=== PATIENT | male | born 1950 | race Caucasian/White ===

== ENCOUNTER 2018-03-25 10:56 | Emergency (ER) | payer MEDICARE ==
[~2018-03-25 10:56] MED LIST changes: -OXYC-865 PO
[2018-03-25 11:00] VITALS: BP 140/89
--- NOTE | 2018-03-25 11:12 | ER Report ---
History and Physical Time Seen By MD: 11:07 Hx. of Stated Complaint: patient was walking up some stairs and tripped. he landed on his right elbow and is reporting right upper arm/shoulder pain HPI/ROS CHIEF COMPLAINT: Fall with right arm pain HISTORY OF PRESENT ILLNESS: 67-year-old male patient presents to emergency room with complaint of fall with right arm pain. [place] stairs when he tripped on the last step. Patient states he fell forward and landed on his right elbow. Patient states he is not having any pain in the elbow at this time but has have pain in the upper arm. He denies any numbness tingling, is able to move his fingers without any difficulties. He states he is not taking any medication for this. EMS was contacted they did bring him up to emergency room, he is placed in a sling at that time. Patient rates his pain currently at a one out of 10. Patient denies any neck pain, head injury, dizziness, nausea, vomiting or diarrhea. REVIEW OF SYSTEMS: Respiratory: No cough, no dyspnea. Cardiovascular: No chest pain, no palpitations. Gastrointestinal: No vomiting, no abdominal pain. Musculoskeletal: As noted above Allergies: Coded Allergies: clindamycin (Verified Adverse Reaction, Unknown, 09/16/11) AVOIDS, NEVER HAD CLINDAMYCIN Uncoded Allergies: JANI HIPS (Allergy, Intermediate, LIP SWELLING, 03/01/12) Home Meds Active Scripts Oxycodone Hcl/Acetaminophen (PERCOCET 5-325 MG TABLET) 1 Each Tablet, 1 EACH PO Q4-6H Y for PAIN, #20 TAB Prov:NAZARIO PURVIS FLUE LINING DIPPER 03/25/18 Reported Medications Levothyroxine Sodium (Levothyroxine Sodium) 50 Mcg Tablet, 75 MCG PO DAILY, 0 Refills 09/16/11 Clonazepam (Klonopin) 1 Mg Tab, 0.5 MG PO BID, 0 Refills 09/16/11 Discontinued Reported Medications Cephalexin Monohydrate (Keflex) 500 Mg Cap, 500 MG PO TID, #15 0 Refills 09/16/11 Past Medical/Surgical History Patient has a past medical history of reflux, hypothyroidism, anxiety. Patient has surgical history of cholecystectomy. Patient has a family medical history of cancer, stroke, diabetes, psychiatric problems. Reviewed Nurses Notes: Yes Hx Smoking: No Hx Substance Use Disorder: No Hx Alcohol Use: No Constitutional Vital Sign - Last 24 Hours 03/25/18 11:00 Temp 98.2 Pulse 76 Resp 20 B/P (MAP) 140/89 Pulse Ox 95 O2 Delivery Room Air Physical Exam General Appearance: The patient is alert, has no immediate need for airway protection and no current signs of toxicity. Respiratory: Chest is non tender, lungs are clear to auscultation. Cardiac: regular rate and rhythm Gastrointestinal: Abdomen is soft and non tender, no masses, bowel sounds normal. Musculoskeletal: Neck: Neck is supple and non tender. Extremities have full range of motion and are non tender. Patient does have tenderness in the upper arm, no tenderness to palpation to the elbow. Patient has good sensation in the hand, good movement. Skin: No rashes or lesions. DIFFERENTIAL DIAGNOSIS: After history and physical exam differential diagnosis was considered for contusion, strain, fracture, dislocation. Medical Decision Making EKG/Imaging Imaging Exam type: SHOULDER MIN 2 VIEWS RIGHT History: fall with pain Comparison: None. Findings: Two views the right shoulder demonstrate an oblique fracture through the mid to proximal diaphysis of the right humerus with 2.7 cm posterior lateral displacement of distal fragment. There is also comminuted fracture through the right humeral head extending through the greater tuberosity. IMPRESSION: 1. Oblique fracture through the mid to proximal diaphysis the right humerus with 2.7 cm posterior lateral displacement of distal fragment Comminuted fracture through the right humeral head extending through the greater tuberosity. Report Dictated By: Nena Lynn MD at 03/25/2018 11:33 AM Report E-Signed By: eNna Lynn MD at 03/25/2018 11:35 AM ED Course/Re-evaluation ED Course Patient was admitted to an exam room, history and physical were obtained. Differential diagnoses were considered. On examination patient does have tenderness in the right upper arm, he is concerned sensation and good movement with his right hand. X-rays performed of the right shoulder, does show a displaced fracture of the proximal humerus. I discussed the case with Dr. Taylor, orthopedist, he recommended placing patient in a sling having follow- up in the clinic. I discussed this with patient. We were able to get him in a sling, he was able tolerate that well. Patient will be discharged home. He does have information to contact [facility], he is to return to emergency room with any numbness or tingling in the hand, or pain that is uncontrolled by his pain medication. Patient verbalized understanding and agreement. I did encourage him to call this afternoon to make an appointment. Patient verbalized understanding and agreement with plan. Decision to Disposition Date: Mar 25, 2018 Decision to Disposition Time: 11:49 Depart Departure Latest Vital Signs Vital Signs Date Time Temp Pulse Resp B/P (MAP) Pulse Ox O2 Delivery O2 Flow Rate FiO2 03/25/18 11:00 98.2 76 20 140/89 95 Room Air Impression: Primary Impression: Humeral fracture Additional Impression: Humeral head fracture Condition: Improved Disposition: HOME OR SELF-CARE Referrals: AKSHAT SCOTT (PCP) DUNG TAYLOR MD New Scripts Oxycodone Hcl/Acetaminophen (PERCOCET 5-325 MG TABLET) 1 Each Tablet 1 EACH PO Q4-6H Y for PAIN, #20 TAB Prov: NAZARIO PURVIS 03/25/18 Patient Instructions: Proximal Humerus Fracture (ED) Additional Instructions: Limit activity by pain. Ice the upper arm; 2-3 times a day for 20-30 minutes. Follow up with [facility], call this afternoon to make an appointment. With a sling 23 out of 24 hours a day, he may take it off to shower. Return to the ER with uncontrollable pain or numbness to the hand. You may take Ibuprofen as needed for pain in addition to the pain medication. Don't take any additional Tylenol while on the pain medication. Problem Qualifiers Primary Impression: Humeral fracture Encounter type: initial encounter Humerus Location: proximal Fracture type : closed Fracture morphology: other fracture Fracture alignment: displaced Laterality: right Qualified Codes: S42.291A - Other displaced fracture of upper end of right humerus, initial encounter for closed fracture Additional Impression: Humeral head fracture Encounter type: initial encounter Fracture type: closed Laterality: right Qualified Codes: S42.291A - Other displaced fracture of upper end of right humerus, initial encounter for closed fracture NAZARIO PURVIS Mar 25, 2018 11:12
--- NOTE | 2018-03-25 11:40 | RADIOLOGY IMAGING REPORT ---
FACILITY: [facility] PATIENT NAME: Herrera Bowles : 1950 MR: [id number] V: [id number] EXAM DATE: ORDERING PHYSICIAN: NAZARIO PURVIS TECHNOLOGIST: Location: [facility] Patient: Herrera Bowles : 1950 Visit/Account:[id number] Date of Sevice: 03/25/2018 Exam type: SHOULDER MIN 2 VIEWS RIGHT History: fall with pain Comparison: None. Findings: Two views the right shoulder demonstrate an oblique fracture through the mid to proximal diaphysis of the right humerus with 2.7 cm posterior lateral displacement of distal fragment. There is also comm inuted fracture through the right humeral head extending through the greater tuberosity. IMPRESSION: 1. Oblique fracture through the mid to proximal diaphysis the right humerus with 2.7 cm posterior la teral displacement of distal fragment Comminuted fracture through the right humeral head extending through the greater tuberosity. Report Dictated By: Nena Lynn MD at 03/25/2018 11:33 AM Report E-Signed By: Nena Lynn MD at 03/25/2018 11:35 AM WSN:[email or web address]
[2018-03-25] MEDS ORDERED: OXYC-865 PO (11:48)
== END 2018-03-25 13:08 | disposition home or self-care (01) ==
LOC: ER 11:09
DX: S42.291A Other displaced fracture of upper end of right humerus, initial encounter for closed fracture (principal)
CPT/HCPCS: 73030; 99283; A9270

== ENCOUNTER → 2018-03-25 | Outpatient (CLI) | payer MEDICARE ==
[~2018-03-25] MED LIST: CEP500 PO; CLO1 PO; DIP25 PO; DOC100 PO; DOCU50CA7 PO; FAMO-129 PO; LEVO50TA80 PO; LOR5 PO; OXYC-865 PO; PAN40 PO; PER PO; [UNRECOGNIZED DRUG - CODE] IM; [UNRECOGNIZED DRUG - CODE] PO
== END ==
LOC: AMB 10:36
PROVIDERS: ATTEND Nurse Practitioner
DX: M25.511 Pain in right shoulder (principal); M25.521 Pain in right elbow; W10.8XXA Fall (on) (from) other stairs and steps, initial encounter; Y92.89 Other specified places as the place of occurrence of the external cause
CPT/HCPCS: A0425; A0429

== ENCOUNTER 2018-04-12 00:18 | Observation (INO) | payer MEDICARE ==
[2018-04-12] VITALS (16 sets, daily range): BP systolic 108–154; BP diastolic 69–103
[~2018-04-12] VITALS: Ht 177.8 cm; Wt 79.3 kg
[~2018-04-12 00:18] MED LIST changes: +OXYC-823 PO; +OXYC-865 PO
[2018-04-12] MEDS ORDERED: NORMOSOL R SOLN(*) 1000 ML BAG 1,000 ML IV PRN (08:00)
[2018-04-12] MEDS ORDERED: ceFAZolin(*) 2GM/D5W 50ML 50 ML IVPB ONE (08:00)
[2018-04-12] MEDS ORDERED: LIDOCAINE/SOD BICARB 8.4% SYR ID ONE (08:00)
[2018-04-12] MEDS ORDERED: CELECOXIB 200 MG CAP PO ONE (08:00)
[2018-04-12] MEDS ORDERED: FAMOTIDINE 20 MG TAB PO ONE (08:00)
[2018-04-12] MEDS ORDERED: MIDAZOLAM 2 MG/2 ML VIAL IVP PRN (08:00)
[2018-04-12] MEDS ORDERED: ROPIVACAINE 0.2% 20 ML VIAL ONE (09:26)
[2018-04-12] MEDS ORDERED: PROPOFOL EMUL(*) 10MG/ML 20 ML 20 ML ONE (10:14)
[2018-04-12] MEDS ORDERED: ROCURONIUM BROM 10 MG/ML 10 ML ONE (10:14)
[2018-04-12] MEDS ORDERED: SUCCINYLCHOL CHL 200MG/10ML VL ONE (10:14)
[2018-04-12] MEDS ORDERED: KETAMINE HCL 500 MG/10 ML VIAL ONE (10:16)
[2018-04-12] MEDS ORDERED: MIDAZOLAM 2 MG/2 ML VIAL ONE (10:17)
[2018-04-12] MEDS ORDERED: DEXAMETHASONE SOD PHOS 10MG/ML ONE (10:30)
[2018-04-12] MEDS ORDERED: GLYCOPYRROLATE 0.2MG/ML 1 ML INJ ONE (10:30)
[2018-04-12] MEDS ORDERED: ONDANSETRON 4 MG/2 ML VIAL ONE (10:30)
[2018-04-12] MEDS ORDERED: fentaNYL CITR 100 MCG/2 ML AMP ONE ×3 (11:13→13:19)
[2018-04-12] MEDS ORDERED: LABETALOL HCL 100 MG/20ML VIAL ONE (11:41)
[2018-04-12] MEDS ORDERED: SUGAMMADEX SOD 200 MG/2 ML SDV ONE (12:41)
--- NOTE | 2018-04-12 12:58 | RADIOLOGY IMAGING REPORT ---
FACILITY: [facility] PATIENT NAME: Herrera Bowles : 1950 MR: [id number] V: [id number] EXAM DATE: ORDERING PHYSICIAN: MELISSA DANGELO TECHNOLOGIST: Location: [facility] Patient: Herrera Bowles : 1950 Visit/Account:[id number] Date of Sevice: 04/12/2018 C-ARM FLUORO 1 HR HISTORY: Humerus fixation COMPARISON: X-ray examination of the shoulder March 25 FINDINGS: DOSE: DAP was 0.15 mGy*m2. Near anatomic alignment status post ORIF. Medullary federico in fixation screws are noted. IMPRESSION: Operative fluoroscopy Report Dictated By: Rikki Sheets MD at 04/12/2018 12:54 PM Report E-Signed By: Rikki Sheets MD at 04/12/2018 12:55 PM WSN:[email or web address]
[2018-04-12] MEDS ORDERED: NALOXONE HCL 0.4 MG/ML VIAL IVP PRN (13:05)
[2018-04-12] MEDS ORDERED: MORPHINE SULFATE 30 MG PCA IV PRN (13:05)
[2018-04-12] MEDS ORDERED: diphenhydrAMINE 25 MG CAP PO PRN (13:05)
[2018-04-12] MEDS ORDERED: PROMETHAZINE 25 MG/ML 1 ML AMP IVP PRN (13:05)
[2018-04-12] MEDS ORDERED: ACETAMINOPHEN 500 MG TAB PO PRN (13:05)
[2018-04-12] MEDS ORDERED: FLUSH 10 ML SYR IVP PRN (13:05)
[2018-04-12] MEDS ORDERED: KCL/D5LR 20 MEQ/1000 ML PREMIX 1,000 ML IV PRN (13:05)
[2018-04-12] MEDS ORDERED: MAGNESIUM CITRATE 300 ML BTL PO PRN (13:05)
[2018-04-12] MEDS ORDERED: ONDANSETRON 4 MG/2 ML VIAL IVP PRN (13:05)
--- NOTE | 2018-04-12 14:22 | OPERATIVE REPORT 1 ---
EVENT DATE: April 12, 2018 SURGEON: Jaylan Michaud M.D. ANESTHESIOLOGIST: Jonathan Alejo M.D. ANESTHESIA: General. INSTRUCTOR CREELER: SREE Da Silva PREOPERATIVE DIAGNOSIS Right proximal third humeral shaft fracture with minimally displaced greater tuberosity fracture. POSTOPERATIVE DIAGNOSIS Right proximal third humeral shaft fracture with minimally displaced greater tuberosity fracture with apparent incarceration in deltoid muscle. PROCEDURE PERFORMED Intramedullary rodding, right proximal humerus, requiring disimpaction of distal fragment spike which was caught within deltoid muscle. ESTIMATED BLOOD LOSS 200 ML. IV FLUIDS 1500 mL crystalloid, no colloid. SPECIMENS None. COMPLICATIONS No known complications, although the axillary nerve and radial nerve at certainly at risk. IMPLANTS USED Advanced Orthopedic Solution 7 mm unreamed federico 225 mm in length with two 5x40 mm proximal screws and one 3.5 x 25 mm distal screw. DESCRIPTION OF PROCEDURE The patient was brought to the operating room and placed on the OR table in the supine position. After attaining adequate general anesthesia, he was placed in the semi beach-chair position with a bump under his shoulder blade, translated laterally so that we could use adequate C-arm visualization. We brought the C- arm in the ipsilateral side. After normal prep and drape, free draping of the arm, we marked the anatomical landmarks and then proceeded to place I[place]an. I started with an incision in Aleksandr's lines on the superior aspect of the shoulder deepened through skin and subcutaneous tissue. I then split the deltoid along the raphe between the anterior and lateral margins, bluntly spreading down to the capsule. There was a hemarthrosis. After we opened the joint and placed a Kolbel retractor, I then examined the rotator cuff, which was intact. In addition, the greater tuberosity fracture did not have sufficient displacement to justify intervention. We split the rotator cuff proximally to allow access to the humeral head and then placed the initial drill wire, checked his position with C-arm and finding it to be adequate. I expanded this to the standard size for this implant. We started with the 22.5 cm federico attached to the forklift driver. The short federico would have been too short for this case and we really did not need an extremely long federico all the way down to the elbow because it was a fairly proximal fracture. I attempted to pass the federico into the fracture site but under fluoroscopic guidance it became clear after quite a bit of effort with traction, rotation and various other manipulative activities that we were not able to move the long oblique distal fragment towards the medial proximal fragment. It appeared that they remained displaced about 100% regardless of what I was doing with traction and angulation. I used the federico as a lever arm to try bring the proximal piece to align with the distal piece but it would never slide down into the shaft of the distal piece. I even tried passing the reduction tool independently into the distal piece and then trying to align them but it would not work. The distal piece proximal element continued to be tethered in the deltoid and it would not move. After trying both the reduction tool, the beaded wire and the federico for several different attempts, I ultimately gave up on this because it was not possible to align the fracture fragments. Furthermore, the distal piece remained proximally migrated at least 1.5 to 2 cm and would not displace distally. He was paralyzed but, unfortunately, it still did not help. At this point, I then made a counter incision over the fracture site deepened through skin and subcutaneous tissue by blunt spreading and then split the deltoid tissue in this region to expose the fracture. Surprisingly, here I was still not able to disimpact the proximal fragment. Once I had visualization of both pieces, I tried placing a clamp carefully in the subperiosteal plane on the distal fragment, taking care to avoid the radial nerve to the best of my ability but I did realize that it was in this region. Once I got better purchase on the distal fragment, I was able to pull and meanwhile I used a blunt hook on the medial aspect of the proximal fragment and advanced them together. Even with this, they still would not close all the way and furthermore the distal part would not distract distally. Consequently, I progressively released soft tissue from around the proximal aspect of the distal fragment but it was speared up inside the deltoid quite extensively and I was concerned it could have damaged the axillary nerve. There was no extensive bleeding during the process of this release so I am assuming the axillary artery was intact and perhaps the nerve as well but I did not directly visualize it as there was a fairly large soft tissue interval between the distal and proximal incisions. Ultimately, the deltoid released from the proximal fragment spike, although the attachment of the deltoid was still intact distally. We finally had better capacity to move the distal fragment and now I was able to displace it distally and align it. I then passed the federico under direct palpation and got the two elements to line up. We then passed the federico down to countersink it approximately 2-3 mm and then placed two locking screws proximally. We checked the C-arm. One of them was a little longer than I wanted. It looked like it might cause interference at the joint so I went with a screw 10 mm shorter. We checked again under fluoroscopy with rotation to confirm both screws were fine. We then impacted the fracture just a small amount. It did appear to come together nicely so I do hope the soft tissues are not entrapped. We got perfect circles on the distal screw hole and then placed a 25 mm cross-locking screw. We checked C-arm to confirm placement of the screw was adequate and then irrigated all wounds for the counter-incision, which at this point was actually quite large (in fact, larger than the proximal incision due to the extension of the incision required for disimpaction from the deltoid). We closed with 0 Vicryl deep followed by 3-0 Vicryl and then tiff. For the proximal incision, I used #2 FiberWire to close the opening I had created in the rotator cuff, after which the deltoid was repaired with 0 Vicryl, irrigation was used between layers and then 3-0 Vicryl for the subcutaneous layer followed by tiff completed the closure. We used a staple closure at the screw portal distally as well. He was given a dry sterile dressing and sling. He was then awakened and transferred to the recovery room in stable condition. At the time of this dictation I had not yet checked his axillary and radial nerve but will do so in PACU. NICOLE
[2018-04-12] MEDS ORDERED: clonazePAM 0.5 MG TAB PO PRN (14:40)
--- NOTE | 2018-04-12 14:54 | Hospitalist Progress Note ---
Subjective Progress Notes Subjective No cp/sob. 200cc of EBL. 1500cc of crystalloid, and dexamethasone given intra- operatively. Physical Exam Vital Signs Date Time Temp Pulse Resp B/P (MAP) Pulse Ox O2 Delivery O2 Flow Rate FiO2 04/12/18 14:25 98 Nasal Cannula 2.0 04/12/18 14:06 97.3 47 16 144/80 (101) Intake and Output 04/13/18 07:00 Intake Total 1550 ml Output Total 200 ml Balance 1350 ml Intake IV Total 1550 ml Output Estimated Blood Loss 200 ml General Appearance: Alert, Awake, No Acute Distress Cardiovascular: Regular Rate and Rhythm Respiratory: Clear to Auscultation (Decreased breath sounds on right lateral chest) Extremities: No Edema Assessment and Plan Problems: (1) Humeral head fracture Status: Acute Assessment & Plan: No CV/pulmonary issues. He denies a h/o CAD, CHF, or COPD. Will defer to Dr. Michaud for DVT prophylaxis. Will check a CBC/CMP tomorrow, because the most recent on record is about a year ago. (2) Hypothyroid Status: Chronic Assessment & Plan: Continue chronic levothyroxine. (3) Anxiety disorder, unspecified Status: Chronic Assessment & Plan: Continue Klonopin prn. Exam Sepsis Risk: No Definite Risk ANDRES WRIGHT MD Apr 12, 2018 14:53
[2018-04-12] MEDS ORDERED: CALCIUM CARBONATE 500 MG CHEW PO PRN (23:15)
[2018-04-13 03:58] VITALS: BP 117/80
[2018-04-13] MEDS ORDERED: LEVOTHYROXINE SOD 0.075 MG TAB PO SCH (06:00)
[2018-04-13] MEDS ORDERED: LEVOTHYROXINE SOD 0.05 MG TAB PO SCH (06:00)
[2018-04-13 06:27] LABS: PLATELET COUNT, AUTOMATED 300 K/uL (150-450)
--- NOTE | 2018-04-13 06:55 | Hospitalist Progress Note ---
Subjective Progress Notes Subjective No cp/sob. No concerns from staff. Physical Exam Vital Signs Date Time Temp Pulse Resp B/P (MAP) Pulse Ox O2 Delivery O2 Flow Rate FiO2 04/13/18 03:58 98.1 92 12 117/80 (92) 94 Room Air 04/12/18 16:05 1.0 General Appearance: Alert, Awake, No Acute Distress Result Diagram: 04/13/18 0546 04/13/1846 Assessment and Plan Problems: (1) Humeral head fracture Status: Acute Assessment & Plan: No CV/pulmonary issues. He denies a h/o CAD, CHF, or COPD. Will defer to Dr. Michaud for DVT prophylaxis. (2) Hyperglycemia Status: Acute Assessment & Plan: Will check an HgA1C and a glucose tomorrow. (3) Hypothyroid Status: Chronic Assessment & Plan: Continue chronic levothyroxine. (4) Anxiety disorder, unspecified Status: Chronic Assessment & Plan: Continue Klonopin prn. Exam Sepsis Risk: No Definite Risk ANDRES WRIGHT MD Apr 13, 2018 06:55
[2018-04-13 07:37] VITALS: BP 130/78
[2018-04-13] MEDS ORDERED: CEPH500T7 PO (11:52)
[2018-04-13] MEDS ORDERED: OXYC5TAB38 PO (11:52)
[2018-04-13 13:34] VITALS: Ht 177.8 cm; Wt 79.3 kg
== END 2018-04-13 11:53 | disposition home health service (06) ==
LOC: OR 00:18 → MED 14:05
PROVIDERS: ADMIT Orthopaedic Surgery Hand Surgery; ATTEND Orthopaedic Surgery Hand Surgery
DX: S42.251A Displaced fracture of greater tuberosity of right humerus, initial encounter for closed fracture (principal); S42.301A Unspecified fracture of shaft of humerus, right arm, initial encounter for closed fracture; F41.9 Anxiety disorder, unspecified; K21.9 Gastro-esophageal reflux disease without esophagitis; F32.9 Major depressive disorder, single episode, unspecified; Z90.49 Acquired absence of other specified parts of digestive tract; E03.9 Hypothyroidism, unspecified; R73.9 Hyperglycemia, unspecified
CPT/HCPCS: 23615; 36415; 36416; 76000; 82948; 83036; 85025; 97166; 97535; A9270; G0378; J0330; J1100; J2250; J2405; J2704; J2795; J3010; J3490; 82040; 82247; 82310; 82374; 82435; 82565; 82947; 84075; 84132; 84155; 84295; 84450; 84460; 84520; C1713; C1769; J0690

== ENCOUNTER 2019-03-20 14:26 | Inpatient (IN) | payer MEDICARE ==
[2018-04-13 13:34] VITALS: Ht 172.7 cm; Wt 49.9 kg
[~2019-03-20] VITALS: Ht 172.7 cm; Wt 49.9 kg
[2019-03-20] MEDS ORDERED: MAG HYD/AL HYD/SIMETH 30ML UDC PO PRN (15:55)
[2019-03-20 16:37] VITALS: BP 129/81
[2019-03-20] MEDS: clonazePAM 0.5 MG TAB PO SCH (20:23)
[2019-03-20] MEDS ORDERED: MIRTAZAPINE 15 MG TAB PO SCH (21:00)
[2019-03-20] MEDS: ACETAMINOPHEN 325 MG TAB PO PRN (21:47)
[2019-03-20] MEDS ORDERED: OLANZapine ZYDIS ODT 5MG TABDP PO ONE (22:00)
--- NOTE | 2019-03-20 22:25 | NUR ---
Pt. given HS meds at 2022. @2039 he was up to the bathroom with 2 assist. Pt. back in bed @2044 he wanted up to look at the window, then back to bed. Watching pt. on camera and he's attempting to stick his finger down his throat. Nurse and tech came to bedside talking to patient doing breathing exercises. Assessed pt.'s pain he shrugged , offered Tylenol pt. he agreed. Pt. also asked for orange juice. pt. continuing yell out with eyes tightly closed, repeating "I want a million dollars" Spoke with 5mg of zydis was ordered. When this nurse approached the bed pt. threw the orange juice . Pt. was given medication . O2 placed on pt. @1 liter. Staff monitoring closely
--- NOTE | 2019-03-21 00:11 | NUR ---
Pt attempted to urinate both standing and sitting but could not void more than a few drops. Upon palpation, the pt's bladder was distended and hard. Obtained multiple bladder scans that yielded anywhere from 567 to 674 cc of urine. Notified Dr. Valdovinos and was advised to send pt to the ER for a CT of the abdomen. Pt off unit at this time enroute to ER with food safety technician Josh.
--- NOTE | 2019-03-21 03:35 | NUR ---
Pt returns to unit form the ER. Per report from Melody BALL in the ER, catheterization performed there yielded approx. 800 cc of urine. An additional bladder flush of approx. 500 cc was performed prior to pt returning to the floor. CT scans and all procedures were tolerated well. IV access removed.
[2019-03-21 03:57] VITALS: BP 151/89
[2019-03-21] MEDS: THIAMINE HCL 100 MG TAB PO SCH (08:15)
[2019-03-21] MEDS: MULTIVITAMINS PO SCH (08:15)
[2019-03-21] MEDS: LEVOTHYROXINE SOD 0.075 MG TAB PO SCH (08:45)
[2019-03-21] MEDS ORDERED: CITALOPRAM HYDROBROM 20 MG TAB PO SCH (09:00)
[2019-03-21] MEDS ORDERED: FOLIC ACID 1 MG TAB PO SCH (09:00)
[2019-03-21] MEDS: TAMSULOSIN HCL 0.4 MG CAP PO SCH (12:16)
[2019-03-21 13:37] VITALS: BP 108/66
--- NOTE | 2019-03-21 14:45 | NUR ---
Physical Therapy Impression PT/OT co-eval completed for pt safety. PT provided CGA for safety while OT assisted with walker negotiation during turns. Pt able to propel safely during straight line ambulation. Physical Therapy Goals 1. Pt to be mod indep for bed mobility and supine to/from sit trnsfrs 2. Pt to be SBA/Mod indep for sit to/from stand transfers 3. Pt to ambulate x 120' with least restrictive device and able to negotiate pathway with improved problem solving abilities. 4. Pt to sofía up/down platform step x 2 reps with SBA/Mod indep and least restrictive device Patient's Goals
--- NOTE | 2019-03-21 14:57 | NUR ---
Occupational Therapy Impression Min A supine to sit. CGA ambulation x120ft with RW. Occasional Min A-CGA for turning with RW. Pt utilizes a cane at baseline. Demonstrated improved (I) with RW as tx progressed. Min A toileting for transfers and clothing management. Min A sit to supine. Pt will benefit from skilled OT services to improve strength/endurance for engagement in ADLs. Occupational Therapy Goals Patient's Goal
--- NOTE | 2019-03-21 17:20 | EKG ---
FACILITY: PATIENT NAME: ISAC CORNELL : [id number] MR: [id number] V: [id number] EXAM DATE: ORDERING PHYSICIAN: LILY PHILLIPS TECHNOLOGIST: Test Reason : Previous abnormal ekg Blood Pressure : / mmHG Vent. Rate : 083 BPM Atrial Rate : 083 BPM P-R Int : 154 ms QRS Dur : 072 ms QT Int : 408 ms P-R-T Axes : 078 043 077 degrees QTc Int : 479 ms Normal sinus rhythm Nonspecific ST and T wave abnormality Relatively unchanged from previous Confirmed by ANDRES WRIGHT ([id number]) on 03/21/2019 10:23:26 PM Referred By: Confirmed By:ANDRES WRIGHT
--- NOTE | 2019-03-21 19:51 | CONSULTATION ---
EVENT DATE: March 21, 2019 REASON FOR CONSULTATION Elevated postvoid residual. HISTORY OF PRESENT ILLNESS Patient is a 68-year-old white male who was admitted to the [facility] yesterday and was found to have difficulty voiding. He was originally evaluated back in the Emergency Room where a Lyon catheter was placed with a recorded postvoid residual of [address] scan was obtained, which revealed some small stones in the posterior portion of the bladder and some prostatic enlargement. His prostate measured approximately 70 to 80 cc. He had no hydronephrosis or renal calculi. The patient's catheter was subsequently removed; however, he has continued to have some difficulty voiding and has been recently empirically started on Flomax. His postvoid residual on evaluation now is approximately 500 mL, and his last void was greater than six hours ago. He is without significant complaints and is not in any pain at this time. The patient states that he has been voiding fairly well for the past several years, but noticed rare urge incontinence. No dysuria, hematuria, or other issues. He denies change in bowel habits. He also denies a history of kidney stones, family history of prostate cancer, or other history. PAST MEDICAL HISTORY 1. Gastroesophageal reflux disease. 2. Pain secondary to a herniated disk. 3. Anxiety and depression. 4. History of alcohol use. 5. He also has a history of hypothyroidism. PAST SURGICAL HISTORY 1. Cholecystectomy. 2. Shoulder surgery. 3. Recent right arm fracture. CURRENT MEDICATIONS 1. Multivitamin. 2. Levothyroxine. 3. Clonazepam. 4. Remeron. 5. Celexa. 6. He has recently been started on Flomax. PHYSICAL EXAMINATION GENERAL: Patient is an elderly, thin, white male in no acute distress. HEENT: Normocephalic, atraumatic. CHEST: Clear to auscultation bilaterally. CARDIOVASCULAR: Regular rate and rhythm. ABDOMEN: Soft, nontender. No masses are palpated. GENITOURINARY: His bladder palates and percusses to approximately two fingerbreadths below the umbilicus. He has a circumcised penis, without lesions. Meatus appears normal. His testes were descended bilaterally, without masses or tenderness. He has no inguinal hernias. EXTREMITIES: Without clubbing, cyanosis, or edema. NEUROLOGIC: Nonfocal. IMPRESSION A 68-year-old male with likely chronic urinary retention given the small bladder stones seen on CT and his enlarged prostate. It is unclear whether he has had increasing postvoid volume in the more recent episode, or we have just uncovered a chronic condition. It appears likely that his normal postvoid residual is approximately 500 to 600 mL given his current volume without significant urgency or sensation. PLAN I agree with the empiric beginning of Flomax. We will place a Lyon catheter to get an accurate measurement of his current bladder volume and to allow the bladder to rest over the next several days. We will try a voiding trial on Sunday morning and remove his catheter at approximately 6 a.m. Also will resend a urine from the Lyon catheter placement and empirically have him start on Bactrim. [facility]
--- NOTE | 2019-03-21 20:07 | OPERATIVE REPORT 1 ---
EVENT DATE: March 21, 2019 SURGEON: Shan Sterling MD ANESTHESIOLOGIST: None. ANESTHESIA: Local lubricating jelly. PREOPERATIVE DIAGNOSIS Incomplete bladder emptying. POSTOPERATIVE DIAGNOSIS Incomplete bladder emptying. PROCEDURE PERFORMED Coude Lyon catheter placement. DRAINS 18-Taiwanese coude Lyon catheter. PATHOLOGY Urine collected post catheter placement for UA and culture. COMPLICATIONS None. FINDINGS 600 mL of clear yellow urine drained. No evidence of stricture or resistance on Lyon catheter placement. STATEMENT OF MEDICAL NECESSITY Patient is a 68-year-old white male admitted to the Behavioral Health Unit, now with incomplete bladder emptying. Nurses have been unable to place a Lyon catheter. DESCRIPTION OF PROCEDURE PERFORMED Procedure was performed in the patient's hospital room with him supine on the bed. He was prepped and draped sterilely. Lidocaine jelly was introduced into the patient's urethra. An 18-Taiwanese coude Lyon catheter was placed with sterile technique. It advanced easily in the urethra into the bladder without evidence of resistance or other problems. He had prompt drainage of clear urine. After emptying the bladder, the balloon was inflated with 10 mL. The bladder was drained over 10 minutes of 600 mL of clear yellow urine. A urine specimen was collected and sent for urine and culture. The patient was stable at the conclusion of the procedure. [facility]
[2019-03-21] MEDS: TRIMETH/SULFA DS 160-800MG TAB PO SCH (20:42)
[2019-03-21] MEDS: clonazePAM 0.5 MG TAB PO SCH (20:42)
[2019-03-21] MEDS: MIRTAZAPINE 15 MG TAB PO SCH (20:45)
[2019-03-21] MEDS: ACETAMINOPHEN 325 MG TAB PO PRN (20:45)
[2019-03-22] MEDS: LEVOTHYROXINE SOD 0.075 MG TAB PO SCH (05:49)
[2019-03-22 06:02] VITALS: BP 127/82
--- NOTE | 2019-03-22 06:26 | EKG ---
FACILITY: [facility] PATIENT NAME: ISAC CORNELL : [id number] MR: [id number] V: [id number] EXAM DATE: ORDERING PHYSICIAN: RAFAEL DAVIS TECHNOLOGIST: BOSSMAN Test Reason : PREVIOUS ABNORMALEKG Blood Pressure : / mmHG Vent. Rate : 072 BPM Atrial Rate : 072 BPM P-R Int : 120 ms QRS Dur : 068 ms QT Int : 310 ms P-R-T Axes : 051 031 058 degrees QTc Int : 339 ms Normal sinus rhythm Diffuse, non-specific T flattening When compared with ECG of 21-MAR-2019 15:51, Relatively unchanged Confirmed by ANDRES WRIGHT ([id number]) on 03/23/2019 8:08:16 AM Referred By: Confirmed By:ANDRES WRIGHT
[2019-03-22] MEDS: THIAMINE HCL 100 MG TAB PO SCH (08:24)
[2019-03-22] MEDS: TAMSULOSIN HCL 0.4 MG CAP PO SCH (08:24)
[2019-03-22] MEDS: OMEGA-3 500 MG CAP PO SCH (08:24)
[2019-03-22] MEDS: TRIMETH/SULFA DS 160-800MG TAB PO SCH ×2 (08:24→20:41)
[2019-03-22] MEDS: MULTIVITAMINS PO SCH (08:24)
[2019-03-22] MEDS: FOLIC ACID/CYANOCOB/PYRIDOXINE PO SCH (08:24)
[2019-03-22] MEDS: CHOLECALCIFEROL 1000 UNIT TAB PO SCH (08:25)
--- NOTE | 2019-03-22 09:21 | SCHAAF H&P ---
DATE OF ADMISSION: March 20, 2019 ATTENDING PHYSICIAN Dima Valdovinos MD The patient was seen at approximately 1030 hours on the a.m. of March 21, 2019 for note concerning this dictation. PRESENTING PROBLEM, CHIEF COMPLAINT Altered mental status. HISTORY OF PRESENT ILLNESS This is a very frail appearing 68-year-old male who has been living independently in the community supported since last March through the [facility] program. It is reported by [facility] that in the last year the patient had a significant right upper arm shoulder fracture requiring surgery. After this time, the patient started to decompensate and has given up doing things, even though upon interviewing the patient it appears that the patient has regained most range of motion and has use of right extremity. [facility] goes on to state that the patient has lost 60 pounds. He has a lot of self-neglect. He has home health now visiting 2 times a week, although the patient appears not be affectively showering and again patient appears to emaciated. Upon interview with the patient himself, the patient again exhibiting recent onset of auditory and visual hallucinations. The patient reporting he is seeing spots and he hears voices at times that tell him to "move faster". Sometimes, the voices may refer to him as being "no good' and seem mood congruent in general. The patient goes on and states that often times he goes into the kitchen to get a drink of water and that the voices tell him the will "zap me" with electric shocks if I drink water. The patient then goes on to state he often drinks water anyway because he is thirsty and "nothing happens". When the patient was asked specifically if he was depressed, the patient reports that I have been depressed "since I broke my arm". The patient denying suicidal thoughts but stating he has had some in the past. He denies any history suggestive of lenora but the patient does have a history suggestive of long-standing heightened anxiety. The patient is known to have retired from a long career working at a [employer] 8 years ago. The patient has never . He has no children and does not have a significant other. The patient admits to long-standing underlying anxiety but reports psychotic symptoms are certainly new. The patient denies any other significant psychiatric concerns. It is notable that the patient is very difficult to interview in general as patient medically cleared through the emergency room and recently having been brought back to the emergency room for urinary retention requiring catheterization. The patient not noted to have affective sleep architecture either on the unit. MENTAL HEALTH HISTORY The patient states he was in an inpatient once in around 1969 at an unknown location for anxiety. The patient is currently seeing Consuelo Whitney for medications and believed to have been started on Celexa since November. The patient also on Klonopin 0.5 mg b.i.d. Since arrival on the unit, patient had been started on low-dose Remeron, was given one dose of Zyprexa Zydis at 5 mg last p.m. FAMILY PSYCHIATRIC HISTORY Largely unknown at this time due to difficulty in obtaining this information from the patient. Will look into [facility] records. PAST MEDICAL HISTORY Significant for right arm fracture a year ago requiring surgical intervention. The patient reports this is his first episode of urinary retention requiring catheterization. The patient has allergies to rosehip and clindamycin. SOCIAL HISTORY The patient was born in [place], [place] and raised in [place] in the [place] area. His parents were at the time of his . They are now . The patient has 3 sisters and 1 brother. He is believed to be in some sort of contact with his sister who lives in [place]. He is a high school graduate at 1 1/2 years college. The patient is retired from working in a library 8 years ago. He is living in an apartment here in [place], the last 21 years. The patient reports not going outside of the home for literally the last year. The patient relying on services to bring food. The patient reports relatively poor diet and eating habits at home and [facility] reports the patient is trying not to spend too much money. The patient has never . He has no children. Not in a current relationship. He lives alone. LEGAL HISTORY The patient has no legal history. SUBSTANCE ABUSE HISTORY The patient reports drinking heavily in his 20s and 30s but later stopping this and not engaged in any substance use now. PHYSICAL EXAMINATION Please see emergency room note. Notable for a 68-year-old male, frail body habitus, looking much older than stated age. Vital signs at the time of admission: Temperature 98.9, pulse 91, respiratory rate 12, blood pressure 136/94 and pulse oximetry 93% on room air at the time of admission. LABORATORY DATA Urinalysis on 03/21/19 showed leukocyte esterase, 17 RBCs, 31 WBCs, this is post catheterization and trace ketones. CBC shows elevations in MCV at 96.7, otherwise overall unremarkable CBC, CMP notable for mild elevation of AST 38, otherwise unremarkable, ammonia level noted to be less than 9, random glucose 111. TSH 1.03 in normal range. Urinalysis showed 80 urine ketones present, leukocyte esterase trace high at the time of admission as well with calcium oxalate crystals present. Toxicology screen negative, nondetectable serum alcohol level. A culture from both urine collected in the emergency room and on the unit is pending. MENTAL STATUS EXAMINATION GENERAL APPEARANCE, BEHAVIOR AND ATTITUDE: Again, this is a very thin 68-year-old male appearing much greater than stated age, disheveled in appearance, making relatively poor eye contact. No periods of tearfulness. SPEECH: Stuttering present with overall difficult communication, quiet. MOOD: Described as depressed. AFFECT: Constricted and mood-congruent. THOUGHT PROCESSES: No gross loose associations or flight of ideas could be detected. THOUGHT CONTENT: The patient admitting to auditory and visual hallucinations. No ideas of reference, thought broadcastings, delusions, obsessions or compulsions. The patient is currently denying suicidal or homicidal ideations. SENSORIUM: Clear. COGNITION: Alert and oriented to person, place, time and partially to situation. MEMORY: Immediate potentially impaired, recent and remote seem intact. INTELLIGENCE: Unable to fully assess. INSIGHT AND JUDGMENT: Currently limited due to overall physical and mental state at the time of admission. ASSESSMENT This is a thin 68-year-old male who may be suffering from affects of unknown medical condition. The patient likely suffering from significant social isolation, failure to thrive and potentially a UTI at the time of admission versus a generalized anxiety disorder which has likely been life-long and major depression with psychotic features. Will continue to evaluate, obtain collateral information. A Urology consult will be called as well for urinary retention. DIAGNOSES PER DSM-V 1. Generalized anxiety disorder. 2. Major depression severe with psychotic features versus mood disorder secondary to general medical condition. 3. Urinary tract infection. 4. Failure to thrive. 5. Social isolation. PLAN 1. Will admit to the unit. 2. Necessary precautions will be implemented. 3. The patient will participate in individual and group therapy. 4. Medications will be administered and titrated accordingly. Will start Flomax for urinary retention and will continue to strive for absence of benzodiazepines. 5. Further lab work to be drawn as well. Urology consult 6. Estimated length of stay unknown at this time. [facility]TD[facility]
--- NOTE | 2019-03-22 10:30 | Antimicrobial Stewardship ---
Antimicrobial Time Out Antimicrobial Stewardship MD Service: Other (Psychiatrist) Antimicrobial Used Bactrim DS oral Start Date: Mar 21, 2019 Culture Results: No (urine culture pending) Comments Comments Treat for at least 3 days KAY PANDEY Mar 22, 2019 10:30
[2019-03-22 10:40] VITALS: BP 110/70
--- NOTE | 2019-03-22 11:28 | NUR ---
Physical Therapy Impression Patient presents in room in bed and is agreeable to therapy. Denies pain at current time and reports he is slightly dizzy. Patient was very min A with bed mobility with mod cues. Patient was min A for STS transfer from bed but CGA for STS transfer from armed chair. Patient instructed to shift weight onto toes after transferring from sit to stand as he tends to push back onto heels. Patient instructed in gait training with FWW on RA ~ 42 feet with CGA and cuing for increased step length and increased mark. Patient was able to adjust step length with cuing but when not cued would retreat to shuffling gait pattern. Patient also had FTL with gait. After a seated rest break patient ambulated another 42 feet back to room. MANAGER OF INTERNAL AUDIT followed with chair for safety. Patient was unsteady the first 15 feet but with increased distance had improved balance. Patient was left in bed with all needs met and nursing present. Physical Therapy Goals 1. Pt to be mod indep for bed mobility and supine to/from sit trnsfrs 2. Pt to be SBA/Mod indep for sit to/from stand transfers 3. Pt to ambulate x 120' with least restrictive device and able to negotiate pathway with improved problem solving abilities. 4. Pt to sofía up/down platform step x 2 reps with SBA/Mod indep and least restrictive device Patient's Goals
[2019-03-22] MEDS: CITALOPRAM HYDROBROM 20 MG TAB PO SCH (11:35)
--- NOTE | 2019-03-22 17:30 | BHS Progress Note ---
S - Subjective Progress Notes Subjective Pt seen in his room with team. As per staff who worked with him yesterday (Josue RN), pt is weaker today, needed more assistance with taking meds, appetite remains very poor, pt did not want to get OOB or ambulate. He was oriented to date and place for me. He acknowledges depressed mood. His EKG is improved today, I discussed it with Dr. Marsh, initially the report was junctional rhythm, But Dr. Marsh felt it was unchanged from yesterday with improved QTc. We have cut celexa to 20 mg for 2 days, then DC, due to yesterday's prolonged QTc. Will continue remeron 15 mg for his antidepressant. He and I had detailed discussion regarding code status witnessed by team, and pt would like to be DNR/DNI due to his age, but certainly does want and agree to continued treatment for his depression, poor nutritional status, urinary retention. Will continue 1:1 observation for fall risk for now since he was agitated first evening, but if he remains calm can DC it tomorrow. Encourage po intake, consider adding low dose stimulant tomorrow-- useful for geriatric depression and poor po intake... Pt seen by Dr. Anderson yesterday and will continue flomax, bactrim, and catheter until Sunday. Suicidal Ideation: None Homicidal Ideation: None BHS - Objective Physical Exam Vital Signs Vital Signs 03/22/19 03/22/19 06:02 10:40 Temp 99.3 Pulse 94 Resp 20 B/P (MAP) 110/70 (83) Pulse Ox 92 O2 Delivery Room Air O2 Flow Rate 1.0 Muscle Strength and Tone: Other (weak) Gait and Station: Unsteady [facility] Medications Reviewed: Side Effects, Benefits of Medication, Risks Allergies Reviewed: Yes Mental Status Exam General Appearance: Casual, Cooperative, Polite, Psychomotor Retardation Speech: Delayed, Other (low volume, slow) Mood: Dysthmic/Depressed Affect: Sad Thought Process: Organized, Logical, Goal Directed Thought Content: No Suicidal Ideation, No Homicidal Ideation, No Delusions, No Auditory Halllucinations, No Visual Hallucinations, No Thought Broadcasting, No Ideas of Reference, No Obsessions, No Compulsions, No Other Sensorium: Clear Cognition: Alert & Oriented-Person, Alert & Oriented-Place, Alert & Oriented- Time, Sjuvy-Dohvtzzf-Vlbuwbscq Memory: Immediate, Recent, Remote Intelligence: Average Insight Judgment: Good [facility] Assessment and Plan Vlfz-[id number] Encounter Date: Mar 22, 2019 Rbbx-[id number] Encounter Time: 10:30 [facility] Plan: Necessary Precautions, Individual/Group Therapy, Admin/Titrate Meds, Educate Patient Tobacco Medications: Not Appropriate Condition Multpiple Antipsychotics Used: No Problems: (1) Major depressive disorder (2) Failure to thrive Status: Acute (3) Urinary retention with incomplete bladder emptying RAFAEL DAVIS MD Mar 22, 2019 17:30
[2019-03-22 20:36] VITALS: BP 120/81
[2019-03-22] MEDS: MIRTAZAPINE 15 MG TAB PO SCH (20:41)
[2019-03-22] MEDS: clonazePAM 0.5 MG TAB PO SCH (20:41)
[2019-03-23] MEDS: LEVOTHYROXINE SOD 0.075 MG TAB PO SCH (06:02)
[2019-03-23 06:03] VITALS: BP 121/82
[2019-03-23] MEDS: MULTIVITAMINS PO SCH (08:19)
[2019-03-23] MEDS: FOLIC ACID/CYANOCOB/PYRIDOXINE PO SCH (08:20)
[2019-03-23] MEDS: CITALOPRAM HYDROBROM 20 MG TAB PO SCH (08:20)
[2019-03-23] MEDS: OMEGA-3 500 MG CAP PO SCH (08:20)
[2019-03-23] MEDS: CHOLECALCIFEROL 1000 UNIT TAB PO SCH (08:20)
[2019-03-23] MEDS: TRIMETH/SULFA DS 160-800MG TAB PO SCH (08:20)
[2019-03-23] MEDS: THIAMINE HCL 100 MG TAB PO SCH (08:20)
[2019-03-23] MEDS: TAMSULOSIN HCL 0.4 MG CAP PO SCH (08:20)
[2019-03-23] MEDS ORDERED: OLANZapine 5 MG TAB PO SCH (10:55)
[2019-03-23 11:25] VITALS: BP 121/70
[2019-03-23 13:22] VITALS: BP 121/78
--- NOTE | 2019-03-23 16:53 | EKG ---
FACILITY: [facility] [place] PATIENT NAME: ISAC CORNELL : [id number] MR: [id number] V: [id number] EXAM DATE: ORDERING PHYSICIAN: RAFAEL DAVIS TECHNOLOGIST: FRIEDA Test Reason : PROLONGED QT Blood Pressure : / mmHG Vent. Rate : 081 BPM Atrial Rate : 081 BPM P-R Int : 152 ms QRS Dur : 078 ms QT Int : 460 ms P-R-T Axes : 047 015 065 degrees QTc Int : 534 ms Normal sinus rhythm Prolonged QT No ST-T abnormalities When compared with ECG of 22-MAR-2019 06:12, Criteria for Septal infarct are no longer present Nonspecific T wave abnormality no longer evident in Inferior leads QT has lengthened Confirmed by ANDRES WRIGHT ([id number]) on 03/23/2019 4:57:56 PM Referred By: RAFAEL DAVIS Confirmed By:ANDRES WRIGHT
--- NOTE | 2019-03-23 17:22 | BHS Progress Note ---
BHS - Subjective Progress Notes Subjective Pt seen in conference room with team. Yesterday he was weak, in bed all day, poor po intake. Today quite a bit better, able to ambulate with walker and a lot of help, taking meals in dining room, talking more and with stronger voice, eating better, drinking ensure well-- had 3 of them this am. He is verbalizing a depressed mood and a lot of psychotic delusions and auditory hallucinations: "Afraid that you all want me off the continent, off this country." "Voices say the most terrible stuff, tell me what I am going to go through, that I am being lied to, that I am a liptard (which he explains is half lizard, half human)." EKG with much improved QTc yesterday in 's, so we medicated pt with zyprexa 2.5 mg this am. His BP pre and 2 hrs post zyprexa were entirely WNL and stable. But EKG about 4 hours after dose shows QTc 543. I spoke with Dr. Comer who advised hold zyprexa tonight, check K+ and Mg now, and daily EKG's for now. Zyprexa is one of neuroleptics LEAST likely to prolong QTc. But pt is still on celexa-- today is last day of weaning it, so he did get 20 mg today. Hope to see QTc tolerate low dose zyprexa better tomorrow when he is finally of celexa completely. Will follow EKG's closely. Pt not c/o any chest pain (clinically actually doing better today) so no need for troponins. Pt has been tolerating powell catheter well, to have it removed tomorrow am as per Dr. Anderson. Suicidal Ideation: None Homicidal Ideation: None BHS - Objective Physical Exam Vital Signs Vital Signs 03/22/19 03/23/19 06:02 13:22 Temp 99.2 Pulse 80 Resp 16 B/P (MAP) 121/78 (92) Pulse Ox 90 O2 Delivery Room Air O2 Flow Rate 1.0 Muscle Strength and Tone: Other (weak) Gait and Station: Unsteady BHS Medications Reviewed: Side Effects, Benefits of Medication, Risks Allergies Reviewed: Yes Mental Status Exam General Appearance: Casual, Good Eye Contact, Cooperative, Polite, Unkept, Psychomotor Retardation, Other (more alert, stronger, and conversant today) Speech: Delayed, Other (slow, but stonger voice today, more conversant) Mood: Dysthmic/Depressed Affect: Sad Thought Process: Organized, Logical, Goal Directed Thought Content: No Suicidal Ideation, No Homicidal Ideation; Delusions (persecutaory, see above), Auditory Halllucinations (persecutaory, derogatory); No Visual Hallucinations, No Thought Broadcasting, No Ideas of Reference, No Obsessions, No Compulsions, No Other Sensorium: Clear Cognition: Alert & Oriented-Person, Alert & Oriented-Place, Alert & Oriented- Time, Rnuyx-Bkwivqpi-Dxnmwbnqv Memory: Immediate, Recent, Remote Intelligence: Average Insight Judgment: Good [facility] Assessment and Plan Yvii-jh-[id number] Encounter Date: Mar 23, 2019 [id number]-nd-Ybjb Encounter Time: 11:00 [facility] Plan: Necessary Precautions, Individual/Group Therapy, Admin/Titrate Meds, Educate Patient Tobacco Medications: Not Appropriate Condition Multpiple Antipsychotics Used: No Problems: (1) Major depressive disorder (2) Failure to thrive Status: Acute (3) Urinary retention with incomplete bladder emptying (4) QT prolongation Status: Acute Assessment & Plan: variable, related to medications, monitor closely Problem Qualifiers (1) Major depressive disorder: Psychotic features: with psychotic features RAFAEL DAVIS MD Mar 23, 2019 17:21
[2019-03-23 18:18] LABS: PLATELET COUNT, AUTOMATED 212 K/uL (150-450)
[2019-03-23] MEDS ORDERED: POTASSIUM CHL 20 MEQ TABCR PO ONE (20:10)
[2019-03-23 20:11] VITALS: BP 124/73
[2019-03-23] MEDS: MIRTAZAPINE 15 MG TAB PO SCH (21:08)
[2019-03-24 05:21] VITALS: BP 126/84
[2019-03-24] MEDS: LEVOTHYROXINE SOD 0.075 MG TAB PO SCH (05:48)
--- NOTE | 2019-03-24 07:09 | EKG ---
FACILITY: [facility] PATIENT NAME: ISAC CORNELL : [id number] MR: [id number] V: [id number] EXAM DATE: ORDERING PHYSICIAN: RAFAEL DAVIS TECHNOLOGIST: KOBY Serrano Reason : ABN. EKG Blood Pressure : / mmHG Vent. Rate : 077 BPM Atrial Rate : 077 BPM P-R Int : 152 ms QRS Dur : 076 ms QT Int : 338 ms P-R-T Axes : 062 041 056 degrees QTc Int : 382 ms Sinus rhythm Possible left atrial enlargement Nonspecific T wave abnormality Abnormal ECG Confirmed by ELIZA TOBIAS ([id number]) on 03/24/2019 9:28:01 AM Referred By: ALAN Confirmed By:ELIZA TOBIAS
[2019-03-24] MEDS: TAMSULOSIN HCL 0.4 MG CAP PO SCH (08:13)
[2019-03-24] MEDS: FOLIC ACID/CYANOCOB/PYRIDOXINE PO SCH (08:13)
[2019-03-24] MEDS: OMEGA-3 500 MG CAP PO SCH (08:13)
[2019-03-24] MEDS: MULTIVITAMINS PO SCH (08:13)
[2019-03-24] MEDS: THIAMINE HCL 100 MG TAB PO SCH (08:13)
[2019-03-24] MEDS: CHOLECALCIFEROL 1000 UNIT TAB PO SCH (08:13)
[2019-03-24 11:39] VITALS: BP 106/78
--- NOTE | 2019-03-24 13:49 | EKG ---
FACILITY: [facility] PATIENT NAME: ISAC CORNELL : [id number] MR: [id number] V: [id number] EXAM DATE: ORDERING PHYSICIAN: LILY PHILLIPS TECHNOLOGIST: Test Reason : Blood Pressure : / mmHG Vent. Rate : 082 BPM Atrial Rate : 082 BPM P-R Int : 154 ms QRS Dur : 078 ms QT Int : 414 ms P-R-T Axes : 064 056 058 degrees QTc Int : 483 ms Sinus rhythm Possible left atrial enlargement QTc interval has lengthened Abnormal ECG Confirmed by ELIZA TOBIAS ([id number]) on 03/24/2019 7:51:47 PM Referred By: Confirmed By:ELIZA TOBIAS
--- NOTE | 2019-03-24 14:31 | NUR ---
Physical Therapy Impression Patient presents in bed and is agreeable to therapy. Supine to sit EOB min A for B LE' sit to supine CGA and max cuing for sequencing. Patient performed STS from EOB with min A to stand as patient stands back on heels Patient needs max cuing for weight shift onto toes and tactile cues. Patient instructed in gait training with CGA to min A for safety as he pushes back on his heels. Patient ambulated from toilet in hallway ~125 feet and then back to bed. Patient needed cuing to get close to HOB but patient did recall from Sunday to move from to HOB with cuing. Patient transferred back into bed with min A. Patient was mod A for toileting. Patient left in bed with all needs met and nursing present. Physical Therapy Goals 1. Pt to be mod indep for bed mobility and supine to/from sit trnsfrs 2. Pt to be SBA/Mod indep for sit to/from stand transfers 3. Pt to ambulate x 120' with least restrictive device and able to negotiate pathway with improved problem solving abilities. 4. Pt to sofía up/down platform step x 2 reps with SBA/Mod indep and least restrictive device Patient's Goals
--- NOTE | 2019-03-24 14:32 | BHS Progress Note ---
[facility] - Subjective Progress Notes Subjective Patient much more sedate this AM, but able to verbalize that he is having no hallucinations this AM. Patient in need of [facility] re[facility] in half-way, and patient agrees, will contact [facility] today. May consider telemetry while on unit, and will continue to evaluate patient interactions throughout the day, and adjust medication accordingly. Patient notably able to recognize and identify various staff members from last week. Patient becoming more alert later in AM. will continue to monitor labs closely, including elevations in hepatic enzymes. EKG's show marked fluctuations overall. No chest pain. Catheter removed this AM. Suicidal Ideation: None Homicidal Ideation: None [facility] - Objective Physical Exam Vital Signs Vital Signs Date Time Temp Pulse Resp B/P (MAP) Pulse Ox O2 Delivery O2 Flow Rate FiO2 03/24/19 11:39 99.5 80 106/78 (87) 93 Room Air 03/24/19 05:21 15 03/22/19 06:02 1.0 Muscle Strength and Tone: Other (weak) Gait and Station: Unsteady [facility] Medications Reviewed: Side Effects, Benefits of Medication, Risks Allergies Reviewed: Yes Mental Status Exam General Appearance: Casual, Good Eye Contact, Cooperative, Polite, Unkept, Psychomotor Retardation Speech: No Normal Volume; Delayed, Other Mood: Dysthmic/Depressed (mildly so, difficult for patient to describe. ) Affect: Calm, Neutral, Anxious (at times, underlying [place] anxiety present ) Thought Process: Organized, Logical, Goal Directed Thought Content: No Suicidal Ideation, No Homicidal Ideation; Delusions (persecutaory, see above); No Auditory Halllucinations (denies today. ), No Visual Hallucinations, No Thought Broadcasting, No Ideas of Reference, No Obsessions, No Compulsions, No Other Sensorium: Clear Cognition: Alert & Oriented-Person, Alert & Oriented-Place, Alert & Oriented- Time, Hejct-Fcdbkwon-Eitrwkalc Memory: Immediate, Recent, Remote Intelligence: Average Insight Judgment: Poor (recently poor, appetite much improved on unit. ) Result Diagram: 03/23/19 1809 03/24/19 0559 [facility] Assessment and Plan Imlq-gz-Glpk Encounter Date: Mar 24, 2019 Ohiv-vv-Nszl Encounter Time: 09:30 [facility] Plan: Necessary Precautions, Individual/Group Therapy, Admin/Titrate Meds, Educate Patient Tobacco Medications: Not Appropriate Condition Multpiple Antipsychotics Used: No Problems: (1) Anxiety disorder, unspecified Status: Chronic (2) Major depressive disorder Status: Chronic (3) Failure to thrive Status: Chronic Condition 1. monitor lab work. 2. consider telemetry. 3. contact [facility]. 4. ongoing medication review. Problem Qualifiers (1) Anxiety disorder, unspecified: Anxiety disorder type: generalized anxiety disorder Qualified Codes: F41.1 - Generalized anxiety disorder (2) Major depressive disorder: Major depression recurrence: recurrent Psychotic features: with psychotic features (3) Failure to thrive: Failure to thrive age range: in adult Qualified Codes: R62.7 - Adult failure to thrive LILY PHILLIPS MD Mar 24, 2019 14:32
[2019-03-24 20:03] VITALS: BP 112/76
[2019-03-24] MEDS: MIRTAZAPINE 15 MG TAB PO SCH (20:33)
[2019-03-25] MEDS: LEVOTHYROXINE SOD 0.075 MG TAB PO SCH (05:49)
[2019-03-25 06:21] VITALS: BP 115/86
[2019-03-25] MEDS: OMEGA-3 500 MG CAP PO SCH (08:49)
[2019-03-25] MEDS: FOLIC ACID/CYANOCOB/PYRIDOXINE PO SCH (08:49)
[2019-03-25] MEDS: MULTIVITAMINS PO SCH (08:49)
[2019-03-25] MEDS: TAMSULOSIN HCL 0.4 MG CAP PO SCH (08:49)
[2019-03-25] MEDS: THIAMINE HCL 100 MG TAB PO SCH (08:49)
[2019-03-25] MEDS: CHOLECALCIFEROL 1000 UNIT TAB PO SCH (08:49)
--- NOTE | 2019-03-25 10:39 | BHS Progress Note ---
[facility] - Subjective Progress Notes Subjective Patient is alert this AM, remembering this provider, and other staff, slow to eat his breakfast, able to verbalize that he is not currently having any hallucinations, and no gross evidence of such exists. Patient remains very weak will monitor further labs today, able to urinate since catheter was discontinued. Patient is in need of entrance into [place] [facility], will arrange for [facility] to review, patient in agreement with plan, and we will encourage some exercise and stimulation today. Further labs today as well, telemetry unremarkable overall. Suicidal Ideation: None Homicidal Ideation: None [facility] - Objective Physical Exam Vital Signs Vital Signs Date Time Temp Pulse Resp B/P (MAP) Pulse Ox O2 Delivery O2 Flow Rate FiO2 03/25/19 06:21 98.5 74 15 115/86 (96) 94 Room Air 03/22/19 06:02 1.0 Muscle Strength and Tone: Other (weak) Gait and Station: Unsteady (needs assist) [facility] Medications Reviewed: Side Effects, Benefits of Medication, Risks Allergies Reviewed: Yes Mental Status Exam General Appearance: Casual, Good Eye Contact, Cooperative, Polite, Unkept, Psychomotor Retardation Speech: Spontaneous; No Normal Volume; Normal Tone, Delayed, Other Mood: Dysthmic/Depressed (mildly so, difficult for patient to describe. ) Affect: Calm, Neutral, Anxious (at times, underlying intermediate anxiety present ) Thought Process: Organized, Logical, Goal Directed; No Loose Associations, No Flight of Ideas Thought Content: No Suicidal Ideation, No Homicidal Ideation, No Delusions, No Auditory Halllucinations (denies today. ), No Visual Hallucinations, No Thought Broadcasting, No Ideas of Reference, No Obsessions, No Compulsions, No Other Sensorium: Clear Cognition: Alert & Oriented-Person, Alert & Oriented-Place, Alert & Oriented- Time, Tcuwi-Vhwpnozb-Astgoqzdk Memory: Immediate, Recent, Remote Intelligence: Average Insight Judgment: Poor (recently poor, appetite much improved on unit. ) Result Diagram: 03/23/19 1809 03/24/19 0559 [facility] Assessment and Plan Oxtr-if-Bfcj Encounter Date: Mar 25, 2019 Pgmy-xg-Hirt Encounter Time: 10:00 [facility] Plan: Necessary Precautions, Individual/Group Therapy, Admin/Titrate Meds, Educate Patient Tobacco Medications: Not Appropriate Condition Multpiple Antipsychotics Used: No Problems: (1) Anxiety disorder, unspecified Status: Chronic (2) Major depressive disorder Status: Chronic (3) Failure to thrive Status: Chronic Condition 1. continue treatment. 2. monitor labs. and UA 3. solidify LTC entrance. Problem Qualifiers (1) Anxiety disorder, unspecified: Anxiety disorder type: generalized anxiety disorder Qualified Codes: F41.1 - Generalized anxiety disorder (2) Major depressive disorder: Major depression recurrence: recurrent Psychotic features: with psychotic features (3) Failure to thrive: Failure to thrive age range: in adult Qualified Codes: R62.7 - Adult failure to thrive LILY PHILLIPS MD Mar 25, 2019 10:39
[2019-03-25 13:05] VITALS: BP 112/78
--- NOTE | 2019-03-25 14:11 | NUR ---
Occupational Therapy Impression Pt alert, agreeable to OT tx. Appropriate follow through of v/c's. Min A supine to sit with v/c's. Min-Mod A x2 sit<>stands with RW. V/c's for sequencing sit<>stands and use of RW. Min A ambulation x15ft, x200ft with RW. Max Ax2 toileting. Improved tolerance for mobility and ADLs this date. Continue POC. Occupational Therapy Goals Patient's Goal
--- NOTE | 2019-03-25 14:14 | NUR ---
Physical Therapy Impression Patient presents in chair and agrees to therapy. Patient was min A for STS from chair with max verbal cues for positioning as patient continues to push back on heels when transferring. Patient instructed in gait training from room to double doors ~175 feet with cuing to stand tall and stay close to walker and for posture. Patient needed mod cues for negotiation of walker to avoid hanna. Patient had unsteady gait with short step length. Patient needed max A to sit on toilet and max A for toileting. Patient transferred back to bed with SBA and mod cues for sequencing. Patient was left with nursing in room. Physical Therapy Goals 1. Pt to be mod indep for bed mobility and supine to/from sit trnsfrs 2. Pt to be SBA/Mod indep for sit to/from stand transfers 3. Pt to ambulate x 120' with least restrictive device and able to negotiate pathway with improved problem solving abilities. 4. Pt to sofía up/down platform step x 2 reps with SBA/Mod indep and least restrictive device Patient's Goals
[2019-03-25] MEDS: MIRTAZAPINE 15 MG TAB PO SCH (20:50)
[2019-03-25 22:08] VITALS: BP 105/58
[2019-03-25] MEDS: ACETAMINOPHEN 325 MG TAB PO PRN (22:37)
[2019-03-26] MEDS: LEVOTHYROXINE SOD 0.075 MG TAB PO SCH (05:25)
[2019-03-26 05:30] VITALS: BP 122/75
--- NOTE | 2019-03-26 05:55 | EKG ---
FAC[place] [facility] [place]IENT NAME: ISAC CORNELL : [id number] MR: [id number] V: [id number] EXAM DATE: ORDERING PHYSICIAN: RAFAEL DAVIS TECHNOLOGIST: DAYNA Test Reason : AM EKG Blood Pressure : / mmHG Vent. Rate : 064 BPM Atrial Rate : 064 BPM P-R Int : 144 ms QRS Dur : 070 ms QT Int : 400 ms P-R-T Axes : 054 078 076 degrees QTc Int : 412 ms Normal sinus rhythm Anterior infarct , age undetermined Abnormal ECG When compared with ECG of 24-MAR-2019 13:38, QT has shortened Confirmed by Gold Lomeli ([id number]) on 03/26/2019 7:15:25 AM Referred By: Confirmed By:Gold Foreman
[2019-03-26] MEDS: MULTIVITAMINS PO SCH (08:37)
[2019-03-26] MEDS: OMEGA-3 500 MG CAP PO SCH (08:37)
[2019-03-26] MEDS: CHOLECALCIFEROL 1000 UNIT TAB PO SCH (08:37)
[2019-03-26] MEDS: TAMSULOSIN HCL 0.4 MG CAP PO SCH (08:37)
[2019-03-26] MEDS: THIAMINE HCL 100 MG TAB PO SCH (08:37)
[2019-03-26] MEDS: FOLIC ACID/CYANOCOB/PYRIDOXINE PO SCH (08:37)
--- NOTE | 2019-03-26 12:24 | BHS Progress Note ---
[facility] - Subjective Progress Notes Subjective Patient much more animated today, ambulating independently with walker. Patient able to present to treatment team meeting with less assistance. Patient making strange verbalizations today, the content, and meaning of which was difficult to understand. Potentially related to return of psychosis, which is possibly related to UTI, will check labs and Urine today. In need of retirement care, may consider depakote today pending lab results. Suicidal Ideation: None Homicidal Ideation: None [facility] - Objective Physical Exam Vital Signs Vital Signs Date Time Temp Pulse Resp B/P (MAP) Pulse Ox O2 Delivery O2 Flow Rate FiO2 03/26/19 05:30 98.4 72 15 122/75 (91) 94 Room Air Muscle Strength and Tone: Other (weak) Gait and Station: Unsteady (needs assist, improved today. ) [facility] Medications Reviewed: Side Effects, Benefits of Medication, Risks Allergies Reviewed: Yes Mental Status Exam General Appearance: Casual, Good Eye Contact, Cooperative, Polite, Unkept, Psychomotor Retardation Speech: Spontaneous; No Normal Volume; Normal Tone, Delayed, Other Mood: Dysthmic/Depressed (mildly so, difficult for patient to describe. ) Affect: Calm, Neutral, Anxious (at times, underlying [facility]ent[facility] anxiety present ) Thought Process: Organized, Logical, Goal Directed; No Loose Associations, No Flight of Ideas Thought Content: No Suicidal Ideation, No Homicidal Ideation, No Delusions; Auditory Halllucinations (likely present today. ), Visual Hallucinations (potentially present today); No Thought Broadcasting, No Ideas of Reference, No Obsessions, No Compulsions, No Other Sensorium: Clear Cognition: Alert & Oriented-Person, Alert & Oriented-Place, Alert & Oriented- Time, [place]-Jvsbbmqk-Zsewcjtbb Memory: Immediate, Recent, Remote Intelligence: Average Insight Judgment: Poor (recently poor, appetite much improved on unit. ) Result Diagram: 03/25/19 1206 03/25/19 1206 [facility] Assessment and Plan Xesz-vm-Dolm Encounter Date: Mar 26, 2019 Oxbi-mv-Slfk Encounter Time: 10:30 [facility] Plan: Necessary Precautions, Individual/Group Therapy, Admin/Titrate Meds, Educate Patient Tobacco Medications: Not Appropriate Condition Multpiple Antipsychotics Used: No Problems: (1) Anxiety disorder, unspecified Status: Chronic (2) Major depressive disorder Status: Chronic (3) Failure to thrive Status: Chronic Condition 1. continue treatment. 2. labs today. 3. penitentiary care options. 4. will consider depakote. Problem Qualifiers (1) Anxiety disorder, unspecified: Anxiety disorder type: generalized anxiety disorder Qualified Codes: F41.1 - Generalized anxiety disorder (2) Major depressive disorder: Major depression recurrence: recurrent Psychotic features: with psychotic features (3) Failure to thrive: Failure to thrive age range: in adult Qualified Codes: R62.7 - Adult failure to thrive LILY PHILLIPS MD Mar 26, 2019 12:24
[2019-03-26 13:35] VITALS: BP 158/92
[2019-03-26 13:38] LABS: PLATELET COUNT, AUTOMATED 225 K/uL (150-450)
[2019-03-26] MEDS: DIVALPROEX SOD DR 250 MG TAB PO SCH ×2 (16:26→21:18)
--- NOTE | 2019-03-26 16:40 | NUR ---
Physical Therapy Impression Pt fairly agitated currently and not appropriate for PT intervention currently. Will try again tomorrow. Physical Therapy Goals 1. Pt to be mod indep for bed mobility and supine to/from sit trnsfrs 2. Pt to be SBA/Mod indep for sit to/from stand transfers 3. Pt to ambulate x 120' with least restrictive device and able to negotiate pathway with improved problem solving abilities. 4. Pt to sofía up/down platform step x 2 reps with SBA/Mod indep and least restrictive device Patient's Goals
[2019-03-26] MEDS: MIRTAZAPINE 15 MG TAB PO SCH (21:18)
--- NOTE | 2019-03-27 00:56 | NUR ---
Pt awake in bed. Talking rapidly occasionally cursing. Talking to or about [place] and a person, occasionally becoming very angry and yelling. Attempted to place Telemetry unit on pt. He immediately tried to pull it off, he was talking but unsure what he was saying. Pt grabbed Tech hand and said "That's enough". We will continue to monitor closely.
[2019-03-27] MEDS: LEVOTHYROXINE SOD 0.075 MG TAB PO SCH (06:14)
[2019-03-27 06:44] VITALS: BP 128/81
[2019-03-27] MEDS: FOLIC ACID/CYANOCOB/PYRIDOXINE PO SCH (08:37)
[2019-03-27] MEDS: THIAMINE HCL 100 MG TAB PO SCH (08:37)
[2019-03-27] MEDS: DIVALPROEX SOD DR 500 MG TAB PO SCH ×2 (08:37→21:45)
[2019-03-27] MEDS: MULTIVITAMINS PO SCH (08:37)
[2019-03-27] MEDS: OMEGA-3 500 MG CAP PO SCH (08:37)
[2019-03-27] MEDS: TAMSULOSIN HCL 0.4 MG CAP PO SCH (08:37)
[2019-03-27] MEDS: CHOLECALCIFEROL 1000 UNIT TAB PO SCH (08:37)
--- NOTE | 2019-03-27 10:16 | BHS Progress Note ---
[facility] - Subjective Progress Notes Subjective Patient exhibiting return of psychotic symptoms yesterday, with what appeared to be significant paranoia. This behavior was accompanied by mild aggressive behaviors toward staff. Notably these behaviors were also associated with manic type writing on therapy notes, with accelerated speech. Depakote was started and this AM, patient is able to focus on breakfast with improved ability to feed self. no obvious positive psychotic symptoms this AM, and no further aggression toward staff. Suicidal Ideation: None Homicidal Ideation: None [facility] - Objective Physical Exam Vital Signs Vital Signs Date Time Temp Pulse Resp B/P (MAP) Pulse Ox O2 Delivery O2 Flow Rate FiO2 03/27/19 06:44 98.2 62 12 128/81 (97) 91 [facility] Test 03/21/19 17:47 03/26/19 13:30 Erythrocyte Sedimentation Rate 3 mm/HOUR (0-20) White Blood Count 5.6 k/uL (4.5-11.0) Red Blood Count 4.45 M/uL (4.00-5.60) Hemoglobin 15.0 g/dL (14.0-18.0) Hematocrit 43.2 % (42.0-52.0) Mean Corpuscular Volume 97.0 fL (80.0-96.0) H Mean Corpuscular Hemoglobin 33.7 pg (26.0-33.0) H Mean Corpuscular Hemoglobin Concent 34.7 g/dL (32.0-36.0) Red Cell Distribution Width 13.9 % (11.5-14.5) Platelet Count 225 K/uL (150-450) Mean Platelet Volume 8.1 fL (7.2-11.1) Neutrophils (%) (Auto) 67.4 % (39.4-72.5) Lymphocytes (%) (Auto) 17.5 % (17.6-49.6) L Monocytes (%) (Auto) 9.9 % (4.1-12.4) Eosinophils (%) (Auto) 4.2 % (0.4-6.7) Basophils (%) (Auto) 1.0 % (0.3-1.4) Nucleated RBC Relative Count (auto) 0.0 /100WBC Neutrophils # (Auto) 3.8 K/uL (2.0-7.4) Lymphocytes # (Auto) 1.0 K/uL (1.3-3.6) L Monocytes # (Auto) 0.6 K/uL (0.3-1.0) Eosinophils # (Auto) 0.2 K/uL (0.0-0.5) Basophils # (Auto) 0.1 K/uL (0.0-0.1) Nucleated RBC Absolute Count (auto) 0.00 K/uL Chemistry Test 03/21/19 17:47 03/22/19 10:40 03/24/19 05:59 03/25/19 12:06 C-Reactive Protein < 0.5 mg/dl (<1.0) Vitamin B12 Level 367 pg/mL (180-914) Folate >22.3 ng/mL (>=5.9) Whole Blood Glucose 101 mg/DL (75-110) Prostate Specific Antigen 1.80 ng/ml (0.0-4.0) Magnesium Level 2.0 mg/dl (1.7-2.2) Ammonia < 9 UMOL/L (9-33) Test 03/26/19 13:30 Sodium Level 137 mmol/L (137-145) Potassium Level 4.2 mmol/L (3.5-5.0) Chloride Level 100 mmol/L (98-107) Carbon Dioxide Level 26 mmol/L (22-30) Blood Urea Nitrogen 22 mg/dl (9-21) Creatinine 0.80 mg/dl (0.66-1.25) Glomerular Filtration Rate Calc > 60.0 Random Glucose 102 mg/dl (75-110) Calcium Level 9.8 mg/dl (8.4-10.2) Total Bilirubin 1.0 mg/dl (0.2-1.3) Aspartate Amino Transf (AST/SGOT) 99 U/L (0-35) Alanine Aminotransferase (ALT/SGPT) 201 U/L (0-56) Alkaline Phosphatase 109 U/L (0-126) Total Protein 7.0 g/dl (6.3-8.2) Albumin 4.0 g/dl (3.5-5.0) Urinalysis Test 03/26/19 00:00 Urine Color Rosalie Urine Clarity Cloudy Urine pH 5.0 pH (4.8-9.5) Urine Specific Energy 1.023 Urine Protein Negative mg/dL (NEGATIVE) Urine Glucose (UA) Negative mg/dL (NEGATIVE) Urine Ketones Trace mg/dL (NEGATIVE) Urine Blood Negative (NEGATIVE) Urine Nitrite Negative (NEGATIVE) Urine Bilirubin Negative (NEGATIVE) Urine Urobilinogen Negative mg/dL (0.2-1.9) Urine Leukocyte Esterase Trace (NEGATIVE) Urine RBC 1 /HPF (0-2/HPF) Urine WBC 7 /HPF (0-5/HPF) Urine Squamous Epithelial Cells None /LPF (</=FEW) Urine Transitional Epithelial Cells Few /LPF (NONE-FEW) Urine Calcium Oxalate Crystals Few /HPF (NONE) Urine Bacteria Negative /HPF (NONE-FEW) Urine Mucus Few /HPF (NONE-FEW) Muscle Strength and Tone: Other (weak) Gait and Station: Unsteady (needs assist, improved today. ) [facility] Medications Reviewed: Side Effects, Benefits of Medication, Risks Allergies Reviewed: Yes Mental Status Exam General Appearance: Casual; No Good Eye Contact; Cooperative, Polite, Unkept, Psychomotor Retardation Speech: Spontaneous; No Normal Volume; Normal Tone, Delayed, Garbled Mood: Dysthmic/Depressed (mildly so, difficult for patient to describe. ) Affect: Calm, Neutral, Anxious (at times, underlying intermodal truck driver anxiety present ) Thought Process: Organized, Logical, Goal Directed; No Loose Associations, No Flight of Ideas Thought Content: No Suicidal Ideation, No Homicidal Ideation, No Delusions; Auditory Halllucinations (likely present today. ), Visual Hallucinations (potentially present today); No Thought Broadcasting, No Ideas of Reference, No Obsessions, No Compulsions, No Other Sensorium: Clear Cognition: Alert & Oriented-Person, Alert & Oriented-Place, Alert & Oriented- Time, Ewbyf-Xftsseey-Trphcnysp Memory: Immediate, Recent, Remote Intelligence: Average Insight Judgment: Poor (recently poor, appetite much improved on unit. ) Result Diagram: 03/26/19 1330 03/26/19 1330 [facility] Assessment and Plan Udql-ce-Uvhm Encounter Date: Mar 27, 2019 Zcct-yr-Bxea Encounter Time: 09:00 [facility] Plan: Necessary Precautions, Individual/Group Therapy, Admin/Titrate Meds, Educate Patient Tobacco Medications: Not Appropriate Condition Multpiple Antipsychotics Used: No Problems: (1) Anxiety disorder, unspecified Status: Chronic (2) Major depressive disorder Status: Chronic (3) Failure to thrive Status: Chronic Condition 1. increase depakote to 500mg BID. 2. [facility] has denied patient admission, continue to search for nursing home care. Problem Qualifiers (1) Anxiety disorder, unspecified: Anxiety disorder type: generalized anxiety disorder Qualified Codes: F41.1 - Generalized anxiety disorder (2) Major depressive disorder: Major depression recurrence: recurrent Psychotic features: with psychotic features (3) Failure to thrive: Failure to thrive age range: in adult Qualified Codes: R62.7 - Adult failure to thrive LILY PHILLIPS MD Mar 27, 2019 10:16
--- NOTE | 2019-03-27 12:40 | NUR ---
Occupational Therapy Impression Pt alert, agreeable to OT tx. Appropriate follow through of verbal cues. Min-Mod A x2 sit<>stands with RW. Verbal cues for sequencing sit<>stands and use of RW. CGA ambulation x15ft, x200ft with RW with w/c follow. Max Ax2 toileting. Improved tolerance for mobility and ADLs this date. Continue POC. Occupational Therapy Goals Patient's Goal
[2019-03-27] MEDS: ACETAMINOPHEN 325 MG TAB PO PRN (15:48)
--- NOTE | 2019-03-27 15:52 | NUR ---
Physical Therapy Impression Pt tolerated ambulation in hallway with FWW and CGA by PT with close W/C follow by nursing to ensure safety. Pt required some cues for walker negotiation, but was able to maneuver the device safely. Pt still somewhat retropulsive with sit to stand transfers, pulling up on walker to assist with stand. Pt encouraged to push up from sitting surface instead. Pt left in recliner at end of session with Nursing present. Recommend placement as pt has limited insight into functional safety and basic bodily function needs. Physical Therapy Goals 1. Pt to be mod indep for bed mobility and supine to/from sit trnsfrs 2. Pt to be SBA/Mod indep for sit to/from stand transfers 3. Pt to ambulate x 120' with least restrictive device and able to negotiate pathway with improved problem solving abilities. 4. Pt to sofía up/down platform step x 2 reps with SBA/Mod indep and least restrictive device Patient's Goals
[2019-03-27 16:50] VITALS: BP 110/66
[2019-03-27] MEDS: MIRTAZAPINE 15 MG TAB PO SCH (21:45)
[2019-03-27] MEDS: IBUPROFEN 600 MG TAB PO PRN (22:25)
[2019-03-28] MEDS: LEVOTHYROXINE SOD 0.075 MG TAB PO SCH (06:26)
[2019-03-28 06:27] VITALS: BP 103/57
--- NOTE | 2019-03-28 08:02 | NUR ---
Physical Therapy Impression Patient presents in bed and is agreeable to therapy. BED mobility SBA. Patient transferred from bed to standing min A for safety as patient continues to push back on his heels. Patient ambulated from bed to toilet with CGA and needed min A for toilet transfer and max A for toileting with PRESS OFFICER to help stand patient for balance so that I could pull patients pants up. Patient then ambulated from room to double doors with a seated rest break and then to doors at opposite end and back to room with PRESS OFFICER following with w/c for safety. Patient transferred to recliner with max cuing for sequencing. Patient was left in recliner with tray table and breakfast and nursing present in room. Physical Therapy Goals 1. Pt to be mod indep for bed mobility and supine to/from sit trnsfrs 2. Pt to be SBA/Mod indep for sit to/from stand transfers 3. Pt to ambulate x 120' with least restrictive device and able to negotiate pathway with improved problem solving abilities. 4. Pt to sofía up/down platform step x 2 reps with SBA/Mod indep and least restrictive device Patient's Goals
[2019-03-28] MEDS: DIVALPROEX SOD DR 500 MG TAB PO SCH ×2 (08:43→21:24)
[2019-03-28] MEDS: IBUPROFEN 600 MG TAB PO PRN ×3 (08:43→21:24)
[2019-03-28] MEDS: TAMSULOSIN HCL 0.4 MG CAP PO SCH (08:43)
[2019-03-28] MEDS: OMEGA-3 500 MG CAP PO SCH ×2 (08:53→09:08)
[2019-03-28] MEDS: MULTIVITAMINS PO SCH (09:00)
[2019-03-28] MEDS: CHOLECALCIFEROL 1000 UNIT TAB PO SCH (09:08)
[2019-03-28] MEDS: THIAMINE HCL 100 MG TAB PO SCH (09:08)
[2019-03-28] MEDS: FOLIC ACID/CYANOCOB/PYRIDOXINE PO SCH (09:08)
--- NOTE | 2019-03-28 09:25 | BHS Progress Note ---
[facility] - Subjective Progress Notes Subjective Patient continues to make gains in strength, some paranoia today, regarding feeling like he is being "poisoned" which seems intermittent. Sleep improved with a probable decline in overall anxiety. Refusing vitamins this AM, but took Depakote. Contacted [facility] program, in agreement that patient is in need of watermelon harvesting supervisor care. [facility] has refused acceptance, will look into circumstances regarding refusal, seems to be based on pay source rather than condition. Suicidal Ideation: None Homicidal Ideation: None [facility] - Objective Physical Exam Vital Signs Vital Signs Date Time Temp Pulse Resp B/P (MAP) Pulse Ox O2 Delivery O2 Flow Rate FiO2 03/28/19 06:27 98.5 58 12 103/57 (72) 95 Room Air Muscle Strength and Tone: Other (weak) Gait and Station: Unsteady (needs assist, improved today. ) [facility] Medications Reviewed: Side Effects, Benefits of Medication, Risks Allergies Reviewed: Yes Mental Status Exam General Appearance: No Good Eye Contact; Unkept, Psychomotor Retardation Speech: Spontaneous; No Normal Volume; Normal Tone, Delayed, Garbled Mood: Dysthmic/Depressed (mildly so, difficult for patient to describe. ) Affect: Calm, Neutral, Anxious (at times, underlying watermelon harvesting supervisor anxiety present ) Thought Process: Organized, Logical, Goal Directed; No Loose Associations, No Flight of Ideas Thought Content: No Suicidal Ideation, No Homicidal Ideation, No Delusions; Auditory Halllucinations (likely present today. ), Visual Hallucinations (pote ntially present today); No Thought Broadcasting, No Ideas of Reference, No Obsessions, No Compulsions, No Other Sensorium: Clear Cognition: Alert & Oriented-Person, Alert & Oriented-Place, Alert & Oriented- Time, Yydto-Mibywgfh-Ozuywvksq Memory: Immediate, Recent, Remote Intelligence: Average Insight Judgment: Poor (recently poor, appetite much improved on unit. ) Result Diagram: 03/26/19 1330 03/26/19 133 [facility] Assessment and Plan Wjgi-ds-Cxro Encounter Date: Mar 28, 2019 Vzjt-dm-Aypm Encounter Time: 08:40 [facility] Plan: Necessary Precautions, Individual/Group Therapy, Admin/Titrate Meds, Educate Patient Tobacco Medications: Not Appropriate Condition Multpiple Antipsychotics Used: No Problems: (1) Anxiety disorder, unspecified Status: Chronic (2) Major depressive disorder Status: Chronic (3) Failure to thrive Status: Chronic Condition 1. Continue current medications. 2. EKG today. 3. labs in AM. Problem Qualifiers (1) Anxiety disorder, unspecified: Anxiety disorder type: generalized anxiety disorder Qualified Codes: F41.1 - Generalized anxiety disorder (2) Major depressive disorder: Major depression recurrence: recurrent Psychotic features: with psychotic features (3) Failure to thrive: Failure to thrive age range: in adult Qualified Codes: R62.7 - Adult failure to thrive LILY PHILLIPS MD Mar 28, 2019 09:25
--- NOTE | 2019-03-28 09:52 | EKG ---
FACILITY: [facility] PATIENT NAME: ISAC CORNELL : [id number] MR: [id number] V: [id number] EXAM DATE: ORDERING PHYSICIAN: LILY PHILLISP TECHNOLOGIST: DAVID Test Reason : PREVIOUSLY ABNORMAL Blood Pressure : / mmHG Vent. Rate : 059 BPM Atrial Rate : 059 BPM P-R Int : 156 ms QRS Dur : 070 ms QT Int : 398 ms P-R-T Axes : 001 031 046 degrees QTc Int : 394 ms Sinus bradycardia Septal infarct (cited on or before 26-MAR-2019) Abnormal ECG Confirmed by KAY COLLADO ([id number]) on 03/28/2019 11:16:51 AM Referred By: ALAN Confirmed By:KAY COLLADO
[2019-03-28 14:05] VITALS: BP 104/64
--- NOTE | 2019-03-28 14:58 | NUR ---
Occupational Therapy Impression CGA with v/c's ambulation x150ft with RW. Close w/c follow. SBA sit<>supine. Improved tolerance for mobility this date. Occupational Therapy Goals Patient's Goal
[2019-03-28] MEDS: MIRTAZAPINE 15 MG TAB PO SCH (21:24)
[2019-03-28 21:30] VITALS: BP 114/79
[2019-03-29] MEDS: LEVOTHYROXINE SOD 0.075 MG TAB PO SCH (05:54)
[2019-03-29 06:10] VITALS: BP 118/71
[2019-03-29] MEDS: MULTIVITAMINS PO SCH (08:39)
[2019-03-29] MEDS: DIVALPROEX SOD DR 500 MG TAB PO SCH ×2 (08:39→20:20)
[2019-03-29] MEDS: THIAMINE HCL 100 MG TAB PO SCH ×2 (08:39→09:00)
[2019-03-29] MEDS: OMEGA-3 500 MG CAP PO SCH (08:39)
[2019-03-29] MEDS: IBUPROFEN 600 MG TAB PO PRN (08:39)
[2019-03-29] MEDS: TAMSULOSIN HCL 0.4 MG CAP PO SCH (08:39)
[2019-03-29] MEDS: FOLIC ACID/CYANOCOB/PYRIDOXINE PO SCH (08:39)
[2019-03-29] MEDS: CHOLECALCIFEROL 1000 UNIT TAB PO SCH (08:40)
--- NOTE | 2019-03-29 09:05 | NUR ---
Pt had difficulty swallowing the last three pills he was administered (500mg Fish Oil, 100mg Thiamine, and 600mg Ibuprofen). He began gagging and spit them into an emesis bag. Kevin HAGER, notified.
[2019-03-29] MEDS ORDERED: OLANZapine ZYDIS ODT 5MG TABDP PO ONE (10:05)
--- NOTE | 2019-03-29 10:22 | NUR ---
Physical Therapy Impression Pt agreeable to therapy session, RN reports that pt has been ambulating with staff this morning. CGA for STS transfers with RW, with verbal cues to "reach back" for stand to sit transitions. Ambulation x120' with RW, with cues for proximity to walker and CGA, overall fair safety demonstrated. PT instruction for standing LE ther-ex with demonstration provided. Pt completed 1x10 reps of standing marching, but became increasingly frustrated with mini squats and therefore ther-ex was discontinued. Continue to rec LT placement. Physical Therapy Goals 1. Pt to be mod indep for bed mobility and supine to/from sit trnsfrs 2. Pt to be SBA/Mod indep for sit to/from stand transfers 3. Pt to ambulate x 120' with least restrictive device and able to negotiate pathway with improved problem solving abilities. 4. Pt to sofía up/down platform step x 2 reps with SBA/Mod indep and least restrictive device Patient's Goals
[2019-03-29] MEDS: IBUPROFEN 100 MG/5 ML UDCUP PO PRN ×2 (10:24→16:25)
--- NOTE | 2019-03-29 11:45 | BHS Progress Note ---
[facility] - Subjective Progress Notes Subjective Pt seen in conference room with staff. Pt looks better physically, more alert, stronger, better eye contact.... has been eating and drinking fairly well. Comfort from [facility] visited last night and said he is not at baseline, she notes he has delusions of "someone up there controlling me." Today with us pt expresses psychotic content; "Someone is making me leave the country." AH of voices started about two weeks prior to hospitalization and continue now, "They know it all, they told me to quit interrupting them, they say no matter what you say it's the wrong answer, they say you are trying to move me out of the country." Says sometimes hears voices along with music in the background. Acknowledges VH of faces of people, and scenes from movies, "the voices say they are overlayed." Pt paranoid regarding being monitored, "I think there's readings that they are taking, I'm not really hooked up to anything but they are taking readings, they're trying to buy time until it's time." Asked nurse this morning if we are trying to poison him. Became more irritable as out talk progressed. Acknowledges depressed mood, very hopeless. Well oriented to person, place, month and year. Will check chem panel tomorrow am given recent elevated LFT's and now on depakote, will check VPA level too. Now that he's been off celexa for 6 days, and EKG yesterday with QTc of 394, will try to re-challenge again today with low dose zyprexa for psychosis, will check EKG 3 hours later and again in am, monitoring for prolonged QTc. Suicidal Ideation: None Homicidal Ideation: None [facility] - Objective Physical Exam Vital Signs Vital Signs 03/29/19 06:10 Temp 97.4 Pulse 65 Resp 15 B/P (MAP) 118/71 (87) Pulse Ox 96 O2 Delivery Room Air Muscle Strength and Tone: Other (, but ambulating with walker today) Gait and Station: Unsteady (needs assist, improved today. ) [facility] Medications Reviewed: Side Effects, Benefits of Medication, Risks Allergies Reviewed: Yes Mental Status Exam General Appearance: Good Eye Contact (improving ), Unkept, Psychomotor Agitation (toward the end of our talk, gesticulating and irritated), Psychomotor Retardation Speech: Spontaneous; No Normal Volume; Normal Tone, Delayed Mood: Dysthmic/Depressed (pt reports depressed mood) Affect: Sad, Other (irritable ) Thought Process: No Loose Associations, No Flight of Ideas; Other (able to reply to closed ended questions but gets tangential easily ) Thought Content: No Suicidal Ideation, No Homicidal Ideation; Delusions (that he is being monitored, that we are poisoning him), Auditory Halllucinations (see avove), Visual Hallucinations (see above); No Thought Broadcasting, No Ideas of Reference, No Obsessions, No Compulsions, No Other Sensorium: Clear Cognition: Alert & Oriented-Person, Alert & Oriented-Place, Alert & Oriented- Time Memory: Immediate, Recent, Remote Intelligence: Average Insight Judgment: Poor Result Diagram: 03/26/19 1330 03/26/19 1330 [facility] Assessment and Plan Impg-lx-Isly Encounter Date: Mar 29, 2019 Otlk-ig-Ahng Encounter Time: 10:00 [facility] Plan: Necessary Precautions, Individual/Group Therapy, Admin/Titrate Meds, Educate Patient Tobacco Medications: Not Appropriate Condition Multpiple Antipsychotics Used: No Problems: (1) Major depressive disorder Status: Chronic (2) Failure to thrive Status: Chronic (3) Urinary retention with incomplete bladder emptying (4) QT prolongation Status: Acute Problem Qualifiers (1) Major depressive disorder: Major depression recurrence: recurrent Psychotic features: with psychotic features (2) Failure to thrive: Failure to thrive age range: in adult Qualified Codes: R62.7 - Adult failure to thrive RAFAEL DAVIS MD Mar 29, 2019 11:45
[2019-03-29 13:10] VITALS: BP 108/64
--- NOTE | 2019-03-29 16:20 | EKG ---
FACILITY: [facility] PATIENT NAME: ISAC CORNELL : [id number] MR: [id number] V: [id number] EXAM DATE: ORDERING PHYSICIAN: RAFAEL ADVIS TECHNOLOGIST: ADDY Test Reason : ELEVATED QT Blood Pressure : / mmHG Vent. Rate : 060 BPM Atrial Rate : 060 BPM P-R Int : 142 ms QRS Dur : 072 ms QT Int : 410 ms P-R-T Axes : 050 071 073 degrees QTc Int : 410 ms Normal sinus rhythm Cannot rule out Anterior infarct (cited on or before 26-MAR-2019) Abnormal ECG When compared with ECG of 28-MAR-2019 09:40, Questionable change in initial forces of Septal leads Confirmed by ISAC KEE ([id number]) on 03/29/2019 8:22:11 PM Referred By: RYAN Confirmed By:ISAC KEE
[2019-03-29] MEDS ORDERED: OLANZapine 5 MG TAB PO ONE (17:40)
[2019-03-29] MEDS: MIRTAZAPINE 15 MG TAB PO SCH (20:19)
[2019-03-29 22:29] VITALS: BP 110/64
--- NOTE | 2019-03-30 03:00 | NUR ---
Within the last hour the pt has been observed getting up to attempt to void approx. every 15 to 20 minutes and does not appear to be able to urinate more than a weak trickle when on the toilet. Palpated the pt's lower abdomen and felt that what was presumed to be his bladder was distended and hard. The bladder scanner was obtained and several scans indicated anywhere from 650 to 750 cc. of urine present. Dr. Brown was notified and an order was given to perform an in and out catheterization to provide some relief for the pt. Once a kit was obtained, the a straight catheter was inserted using sterile technique. The pt tolerated this well, displaying some mild discomfort during insertion. Once completed, the bladder was allowed to drain and yielded 1000 cc. of clear reji urine. The catheter was removed and the pt reported that he felt better. Ledy-care was performed and the pt went back to sleep shortly after.
[2019-03-30 05:50] VITALS: BP 122/80
[2019-03-30] MEDS: LEVOTHYROXINE SOD 0.075 MG TAB PO SCH (05:52)
[2019-03-30 06:31] LABS: PLATELET COUNT, AUTOMATED 176 K/uL (150-450)
--- NOTE | 2019-03-30 08:08 | EKG ---
FACILITY: [facility] PATIENT NAME: ISAC CORNELL : [id number] MR: [id number] V: [id number] EXAM DATE: ORDERING PHYSICIAN: RAFAEL DAVIS TECHNOLOGIST: ADDY Test Reason : ELEVATED QT Blood Pressure : / mmHG Vent. Rate : 055 BPM Atrial Rate : 055 BPM P-R Int : 152 ms QRS Dur : 070 ms QT Int : 430 ms P-R-T Axes : 027 069 089 degrees QTc Int : 411 ms Sinus bradycardia Septal infarct (cited on or before 26-MAR-2019) Abnormal ECG When compared with ECG of 29-MAR-2019 15:19, No significant change was found Confirmed by KAY COLLADO ([id number]) on 03/30/2019 10:22:21 AM Referred By: RYAN Confirmed By:KAY COLLADO
[2019-03-30] MEDS: TAMSULOSIN HCL 0.4 MG CAP PO SCH (08:24)
[2019-03-30] MEDS: MULTIVITAMINS PO SCH (08:24)
[2019-03-30] MEDS: THIAMINE HCL 100 MG TAB PO SCH (08:24)
[2019-03-30] MEDS: DIVALPROEX SOD DR 500 MG TAB PO SCH ×2 (08:24→20:58)
[2019-03-30] MEDS: CHOLECALCIFEROL 1000 UNIT TAB PO SCH (08:24)
[2019-03-30] MEDS: FOLIC ACID/CYANOCOB/PYRIDOXINE PO SCH (08:24)
[2019-03-30] MEDS: IBUPROFEN 100 MG/5 ML UDCUP PO PRN ×2 (08:41→18:05)
[2019-03-30] MEDS ORDERED: OLANZapine ZYDIS ODT 5MG TABDP PO ONE (10:25)
--- NOTE | 2019-03-30 11:38 | BHS Progress Note ---
[facility] - Subjective Progress Notes Subjective Pt seen in conference room with team. Pt continues to seem nlye-ia-cfcyjmqt-better each day. Better eye contact, answering questions better, although still with impressive latency of response. Well oriented. T olerated 2 doses of zyprexa yesterday with stable QTc, so will continue today, continue to monitor EKG at least for another day. Labs look alright today, H and H have dropped but not bad.... LFT's improved. Valproate is good at 58.4. He still verbalizes a lot of psychotic content: I am on national TV aren't I, because that's what I've been told?" Says he believes that "certain things in my private life have been broadcast." Says voices tell him "that I have offensive body odor." Says he feels like "they are tracking me, I thought I was in private surroundings, but I am not." Still reports VH of "faces and stuff, animals." We tried to reassure him that voices are not real, that he is ill with major depression, and that such derogatory/accusatory voices are common, but that he is getting better. Will continue remeron, depakote, zyprexa today-- check EKG at 1 pm and again in am. Suicidal Ideation: None Homicidal Ideation: None [facility] - Objective Physical Exam Vital Signs Vital Signs 03/30/19 05:50 Temp 97.8 Pulse 58 Resp 15 B/P (MAP) 122/80 (94) Pulse Ox 96 O2 Delivery Room Air Muscle Strength and Tone: Other (, but ambulating with walker today) Gait and Station: Unsteady (needs assist, improved today. ) S Medications Reviewed: Side Effects, Benefits of Medication, Risks Allergies Reviewed: Yes Mental Status Exam General Appearance: Good Eye Contact (improving ), Unkept, Psychomotor Retardation Speech: Spontaneous; No Normal Volume; Normal Tone, Delayed (significant latency of response) Mood: Dysthmic/Depressed Affect: Sad, Other (irritable ) Thought Process: Other (able to reply to closed ended questions but gets tangential easily ) Thought Content: No Suicidal Ideation, No Homicidal Ideation; Delusions (that he is being monitored, that we are poisoning him), Auditory Halllucinations (see avove), Visual Hallucinations (see above); No Thought Broadcasting, No Ideas of Reference, No Obsessions, No Compulsions, No Other Sensorium: Clear Cognition: Alert & Oriented-Person, Alert & Oriented-Place, Alert & Oriented- Time Memory: Immediate, Recent, Remote Intelligence: Average Insight Judgment: Poor Result Diagram: 03/30/19 0617 03/30/19 0617 [facility] Assessment and Plan [id number] Encounter Date: Mar 30, 2019 Rvww-bg-Eobe Encounter Time: 10:30 [facility] Plan: Necessary Precautions, Individual/Group Therapy, Admin/Titrate Meds, Educate Patient Tobacco Medications: Not Appropriate Condition Multpiple Antipsychotics Used: No Problems: (1) Major depressive disorder Status: Chronic (2) Failure to thrive Status: Chronic (3) Urinary retention with incomplete bladder emptying (4) QT prolongation Status: Acute Problem Qualifiers (1) Major depressive disorder: Major depression recurrence: recurrent Psychotic features: with psychotic features (2) Failure to thrive: Failure to thrive age range: in adult Qualified Codes: R62.7 - Adult failure to thrive RAFAEL DAVIS MD Mar 30, 2019 11:38
[2019-03-30 13:30] VITALS: BP 122/72
--- NOTE | 2019-03-30 17:29 | EKG ---
[place] [facility] [place] NAME: ISAC CORNELL : [id number] MR: [id number] V: [id number] EXAM DATE: ORDERING PHYSICIAN: RAFAEL DAVIS TECHNOLOGIST: ADDY Test Reason : PROLONGED QT Blood Pressure : / mmHG Vent. Rate : 066 BPM Atrial Rate : 066 BPM P-R Int : 172 ms QRS Dur : 076 ms QT Int : 384 ms P-R-T Axes : -23 -11 -13 degrees QTc Int : 402 ms Normal sinus rhythm Normal ECG No previous ECGs available Confirmed by KAY COLLADO ([id number]) on 03/30/2019 9:44:57 PM Referred By: RYAN Confirmed By:KAY COLLADO
[2019-03-30] MEDS: OLANZapine ZYDIS ODT 5MG TABDP PO SCH (20:58)
[2019-03-30] MEDS: MIRTAZAPINE 15 MG TAB PO SCH (20:58)
[2019-03-31 06:00] VITALS: BP 122/68
[2019-03-31] MEDS: LEVOTHYROXINE SOD 0.075 MG TAB PO SCH (06:00)
--- NOTE | 2019-03-31 08:34 | EKG ---
FACILITY: [facility] [place] PATIENT NAME: ISAC CORNELL : [id number] MR: [id number] V: [id number] EXAM DATE: ORDERING PHYSICIAN: RAFAEL DAVIS TECHNOLOGIST: KOBY Serrano Reason : BH Blood Pressure : / mmHG Vent. Rate : 056 BPM Atrial Rate : 056 BPM P-R Int : 180 ms QRS Dur : 062 ms QT Int : 390 ms P-R-T Axes : 057 061 079 degrees QTc Int : 376 ms Sinus bradycardia Septal infarct , age undetermined Abnormal ECG When compared with ECG of 30-MAR-2019 13:51, Questionable change in QRS axis T wave inversion no longer evident in Inferior leads Confirmed by Gold Lomeli ([id number]) on 04/01/2019 12:35:57 AM Referred By: ALAN Confirmed By:Gold Foreman
[2019-03-31] MEDS: DIVALPROEX SOD DR 500 MG TAB PO SCH ×2 (08:47→20:22)
[2019-03-31] MEDS: FOLIC ACID/CYANOCOB/PYRIDOXINE PO SCH (08:47)
[2019-03-31] MEDS: TAMSULOSIN HCL 0.4 MG CAP PO SCH (08:47)
[2019-03-31] MEDS: THIAMINE HCL 100 MG TAB PO SCH (08:47)
[2019-03-31] MEDS: MULTIVITAMINS PO SCH (08:47)
[2019-03-31] MEDS: CHOLECALCIFEROL 1000 UNIT TAB PO SCH (08:48)
[2019-03-31] MEDS: OLANZapine ZYDIS ODT 5MG TABDP PO SCH ×2 (08:48→20:22)
[2019-03-31] MEDS: IBUPROFEN 100 MG/5 ML UDCUP PO PRN ×2 (08:48→15:47)
[2019-03-31 11:24] VITALS: BP 103/62
--- NOTE | 2019-03-31 12:08 | NUR ---
Physical Therapy Impression PT wound eval completed. Pt did visualize this wound last week during treatment session, as tegaderm has been covering it. Non-selective debridement completed with sterile gauze and sterile saline to gently remove layer of loose yellow slough after removal of tegaderm. Pt does have some minimal drainage, however, edges of wound are not macerated. Will transition to lite bordered 4x4 silicone dressing for absorption and padding of cantu. Nrsg to leave intact x 1 week or change sooner if dressing becomes contaminated, overly saturated or dislodged. Nursing to manage dressing at this time and consult PT if new concerns arise. Physical Therapy Goals 1. Pt to be mod indep for bed mobility and supine to/from sit trnsfrs 2. Pt to be SBA/Mod indep for sit to/from stand transfers 3. Pt to ambulate x 120' with least restrictive device and able to negotiate pathway with improved problem solving abilities. 4. Pt to sofía up/down platform step x 2 reps with SBA/Mod indep and least restrictive device Patient's Goals
--- NOTE | 2019-03-31 12:31 | BHS Progress Note ---
[facility] - Subjective Progress Notes Subjective Patient communicating much more effectively this AM, Much easier to understand. " The transponder is indicating they want to kill me" referring to going outside the hospital in a wheelchair accompanied by staff. Physical strength continues to improve, will have urology see if they have further recommendations today, regarding catheterization. Will continue to look into LTC options as well. Will stop Flomax if indwelling catheter placed. . Suicidal Ideation: None Homicidal Ideation: None [facility] - Objective Physical Exam Vital Signs Hematology Test 03/21/19 17:47 03/30/19 06:17 Erythrocyte Sedimentation Rate 3 mm/HOUR (0-20) White Blood Count 3.7 k/uL (4.5-11.0) L Red Blood Count 3.85 M/uL (4.00-5.60) L Hemoglobin 13.1 g/dL (14.0-18.0) L Hematocrit 37.7 % (42.0-52.0) L Mean Corpuscular Volume 97.9 fL (80.0-96.0) H Mean Corpuscular Hemoglobin 33.9 pg (26.0-33.0) H Mean Corpuscular Hemoglobin Concent 34.7 g/dL (32.0-36.0) Red Cell Distribution Width 14.0 % (11.5-14.5) Platelet Count 176 K/uL (150-450) Mean Platelet Volume 7.3 fL (7.2-11.1) Neutrophils (%) (Auto) 63.7 % (39.4-72.5) Lymphocytes (%) (Auto) 20.1 % (17.6-49.6) Monocytes (%) (Auto) 12.6 % (4.1-12.4) H Eosinophils (%) (Auto) 3.0 % (0.4-6.7) Basophils (%) (Auto) 0.6 % (0.3-1.4) Nucleated RBC Relative Count (auto) 0.0 /100WBC Neutrophils # (Auto) 2.4 K/uL (2.0-7.4) Lymphocytes # (Auto) 0.7 K/uL (1.3-3.6) L Monocytes # (Auto) 0.5 K/uL (0.3-1.0) Eosinophils # (Auto) 0.1 K/uL (0.0-0.5) Basophils # (Auto) 0.0 K/uL (0.0-0.1) Nucleated RBC Absolute Count (auto) 0.00 K/uL Chemistry Test 03/21/19 17:47 03/22/19 10:40 03/24/19 05:59 03/25/19 12:06 C-Reactive Protein < 0.5 mg/dl (<1.0) Vitamin B12 Level 367 pg/mL (180-914) Folate >22.3 ng/mL (>=5.9) Whole Blood Glucose 101 mg/DL (75-110) Prostate Specific Antigen 1.80 ng/ml (0.0-4.0) Magnesium Level 2.0 mg/dl (1.7-2.2) Ammonia < 9 UMOL/L (9-33) Test 03/30/19 06:17 Sodium Level 141 mmol/L (137-145) Potassium Level 3.7 mmol/L (3.5-5.0) Chloride Level 106 mmol/L (98-107) Carbon Dioxide Level 26 mmol/L (22-30) Blood Urea Nitrogen 14 mg/dl (9-21) Creatinine 0.60 mg/dl (0.66-1.25) Glomerular Filtration Rate Calc > 60.0 Random Glucose 90 mg/dl (75-110) Calcium Level 8.9 mg/dl (8.4-10.2) Total Bilirubin 0.5 mg/dl (0.2-1.3) Aspartate Amino Transf (AST/SGOT) 51 U/L (0-35) Alanine Aminotransferase (ALT/SGPT) 88 U/L (0-56) Alkaline Phosphatase 79 U/L (0-126) Total Protein 5.8 g/dl (6.3-8.2) Albumin 3.2 g/dl (3.5-5.0) Toxicology Test 03/30/19 06:17 Valproic Acid (Depakene) Level 58.4 ug/ml Urinalysis Test 03/26/19 00:00 03/31/19 09:45 Urine Transitional Epithelial Cells Few /LPF (NONE-FEW) Urine Color Yellow Urine Clarity Slightly-cloudy Urine pH 6.0 pH (4.8-9.5) Urine Specific [place] 1.015 Urine Protein Negative mg/dL (NEGATIVE) Urine Glucose (UA) Negative mg/dL (NEGATIVE) Urine Ketones Trace mg/dL (NEGATIVE) Urine Blood Negative (NEGATIVE) Urine Nitrite Negative (NEGATIVE) Urine Bilirubin Negative (NEGATIVE) Urine Urobilinogen Negative mg/dL (0.2-1.9) Urine Leukocyte Esterase Small (NEGATIVE) Urine RBC 5 /HPF (0-2/HPF) Urine WBC 17 /HPF (0-5/HPF) Urine Squamous Epithelial Cells None /LPF (</=FEW) Urine Calcium Oxalate Crystals Few /HPF (NONE) Urine Bacteria Few /HPF (NONE-FEW) Urine Mucus Few /HPF (NONE-FEW) Vital Signs Date Time Temp Pulse Resp B/P (MAP) Pulse Ox O2 Delivery O2 Flow Rate FiO2 03/31/19 11:24 100.2 60 103/62 (76) 96 Room Air 03/30/19 13:30 16 Muscle Strength and Tone: Other ( ambulating with walker today) Gait and Station: Unsteady (needs assist, improving) [facility] Medications Reviewed: Side Effects, Benefits of Medication, Risks Allergies Reviewed: Yes Mental Status Exam General Appearance: Good Eye Contact (improving ), Unkept, Psychomotor Retardation Speech: Spontaneous, Normal Rhythm (much improved today); No Normal Volume; Normal Tone, Delayed (significant latency of response, improved today) Mood: Dysthmic/Depressed Affect: Sad, Neutral, Other (irritable ) Thought Process: Other (able to reply to closed ended questions but gets tangential easily copperative with care today. ) Thought Content: No Suicidal Ideation, No Homicidal Ideation; Delusions (that he is being monitored, that we are poisoning him), Auditory Halllucinations (see avove), Visual Hallucinations (see above); No Thought Broadcasting, No Ideas of Reference, No Obsessions, No Compulsions, No Other Sensorium: Clear Cognition: Alert & Oriented-Person, Alert & Oriented-Place, Alert & Oriented- Time; No Egjpg-Eybinlhe-Exikgdmre (partially) Memory: Immediate, Recent, Remote Intelligence: Average Insight Judgment: Poor (remains limited currently) Result Diagram: 03/30/1961603/30/19616 [facility] Assessment and Plan Ehtm-oo-Vatx Encounter Date: Mar 31, 2019 Sqyk-uk-Anez Encounter Time: 11:00 [facility] Plan: Necessary Precautions, Individual/Group Therapy, Admin/Titrate Meds, Educate Patient Tobacco Medications: Not Appropriate Condition Multpiple Antipsychotics Used: No Problems: (1) Anxiety disorder, unspecified Status: Chronic (2) Major depressive disorder Status: Chronic (3) Failure to thrive Status: Chronic Condition 1. continue treatment. 2. urology follow up consult today. 3. hold flomax if catheter in place. 4. look into LTC placement. Problem Qualifiers (1) Anxiety disorder, unspecified: Anxiety disorder type: generalized anxiety disorder Qualified Codes: F41.1 - Generalized anxiety disorder (2) Major depressive disorder: Major depression recurrence: recurrent Psychotic features: with psychotic features (3) Failure to thrive: Failure to thrive age range: in adult Qualified Codes: R62.7 - Adult failure to thrive LILY PHILLIPS MD Mar 31, 2019 12:31
--- NOTE | 2019-03-31 13:24 | NUR ---
Physical Therapy Impression Patient presents in bed and is agreeable to therapy. Patient was SBA with bed mobility and transfers. Patient instructed in gait training with FWW with CGA and w/c follow for safety as patient will loose his balance. Patient ambulated ~225 feet with CGA and encouragement for distance. Patient had WNL mark today and was able to put pressure through his toes today. Patient had increased safety awareness today did need extra time for turning 180 degrees but much safer than other therapy sessions. Patient then performed exercises in room including seated marching, standing marching holding onto walker, standing hip flexion with CGA to min A for safety, seated B LAQ, and seated ankle pumps all times 10 reps. Patient had improved activity tolerance today as he had increased ambulation distance improved mark and was also able to perform exercises. Patient was left in chair with tray table in front of him with tilley and nursing very close by. PT wound eval completed. Pt did visualize this wound last week during treatment session, as tegaderm has been covering it. Non-selective debridement completed with sterile gauze and sterile saline to gently remove layer of loose yellow slough after removal of tegaderm. Pt does have some minimal drainage, however, edges of wound are not macerated. Will transition to lite bordered 4x4 silicone dressing for absorption and padding of cantu. Nrsg to leave intact x 1 week or change sooner if dressing becomes contaminated, overly saturated or dislodged. Nursing to manage dressing at this time and consult PT if new concerns arise. Physical Therapy Goals 1. Pt to be mod indep for bed mobility and supine to/from sit trnsfrs 2. Pt to be SBA/Mod indep for sit to/from stand transfers 3. Pt to ambulate x 120' with least restrictive device and able to negotiate pathway with improved problem solving abilities. 4. Pt to sofía up/down platform step x 2 reps with SBA/Mod indep and least restrictive device Patient's Goals
--- NOTE | 2019-03-31 15:19 | Urology Progress Note ---
Subjective Patient Complains of: Neurological: Other Cardiovascular: No: Chest Pain, Palpitations, Orthostatic Hypotension, Other Respiratory: No: Cough, Congestion, Shortness of Breath, Wheezing, Other Gastrointestinal: Other (N's of incomplete emptying) Genitourinary: Dysuria, Hematuria, Urinary Incontinence, Other (sense of incomplete emptying) Musculoskeletal: No: Pain, Sprain, Strain, Impaired Mobility, Other Physical Exam Vital Signs Date Time Temp Pulse Resp B/P (MAP) Pulse Ox O2 Delivery O2 Flow Rate FiO2 03/31/19 11:24 100.2 60 103/62 (76) 96 Room Air 03/30/19 13:30 16 Intake and Output 03/31/19 07:03 Intake Total 1400 ml Output Total 525 ml Balance 875 ml Intake Oral 1400 ml Output Urine Total 525 ml # Voids 5 General Appearance: No Acute Distress Eyes: PERRLA GI: Soft and Non-Tender : No CVA Tenderness, Other (bladder is palpable above symphysis pubis. Bladder scan greater than 700 mL) Extremities: Soft and Non Tender Result Diagram: 03/30/1961603/30/19616 Assessment and Plan Problems: (1) Urinary retention with incomplete bladder emptying Status: Acute Condition At the bedside I placed a 16 [place] coud catheter which drained approximately 800 cc of clear urine. I have recommended stopping Flomax and leaving the catheter in for approximately one week to allow "bladder rest". I will notify Dr. Sterling's office. Time Spent: < 30 min CARSON HUFF MD Mar 31, 2019 15:19
[2019-03-31 20:05] VITALS: BP 120/65
[2019-03-31] MEDS: MIRTAZAPINE 15 MG TAB PO SCH (20:22)
[2019-04-01] MEDS: LEVOTHYROXINE SOD 0.075 MG TAB PO SCH (06:06)
[2019-04-01 06:15] VITALS: BP 111/62
[2019-04-01] MEDS: DIVALPROEX SOD DR 500 MG TAB PO SCH ×2 (08:14→20:39)
[2019-04-01] MEDS: THIAMINE HCL 100 MG TAB PO SCH (08:14)
[2019-04-01] MEDS: CHOLECALCIFEROL 1000 UNIT TAB PO SCH (08:14)
[2019-04-01] MEDS: FOLIC ACID/CYANOCOB/PYRIDOXINE PO SCH (08:14)
[2019-04-01] MEDS: MULTIVITAMINS PO SCH (08:14)
[2019-04-01] MEDS: OLANZapine ZYDIS ODT 5MG TABDP PO SCH ×2 (08:16→20:40)
[2019-04-01] MEDS: ACETAMINOPHEN 325 MG TAB PO PRN (08:19)
--- NOTE | 2019-04-01 10:07 | NUR ---
Physical Therapy Impression Patient instructed in gait training with FWW with cuing for posture and to stay close to walker. Patient ambulated ~264 feet with CGA for safety. Patient needed encouragement for increased distance and needed a seated rest break. Patient able to transfer STS from w/c CGA only STS from bed is min A. Patient was min A for bed mobility. Patient was left in chair with tray in front of him and tilley and nursing notified he was left in his chair. Patient reported of pain at beginning of treatment in his shoulder, toes and leg and nursing was notified of the pain. Patient did push back on heels more today with bed transfer than yesterday. Patient has had a powell bag today. Physical Therapy Goals 1. Pt to be mod indep for bed mobility and supine to/from sit trnsfrs 2. Pt to be SBA/Mod indep for sit to/from stand transfers 3. Pt to ambulate x 120' with least restrictive device and able to negotiate pathway with improved problem solving abilities. 4. Pt to sofía up/down platform step x 2 reps with SBA/Mod indep and least restrictive device Patient's Goals
--- NOTE | 2019-04-01 12:16 | BHS Progress Note ---
[facility] - Subjective Progress Notes Subjective Patient continues to improve, and displaying lessening of psychotic symptoms overall today. Patient reports he still has a "transponder" embedded in his brain, and notably able to communicate much more effectively this week. Patient is making improved eye contact, and not demonstrating any aggression toward st aff. Not voicing paranoia today about staff intentions, and is taking medications without hesitation today. Urine culture positive today, will start appropriate antibiotic. Suicidal Ideation: None Homicidal Ideation: None [facility] - Objective Physical Exam Vital Signs Vital Signs Date Time Temp Pulse Resp B/P (MAP) Pulse Ox O2 Delivery O2 Flow Rate FiO2 04/01/19 06:15 99.4 56 111/62 (78) 95 Room Air 03/30/19 13:30 16 Muscle Strength and Tone: Other ( ambulating with walker today) Gait and Station: Unsteady (improving) [facility] Medications Reviewed: Side Effects, Benefits of Medication, Risks Allergies Reviewed: Yes Mental Status Exam General Appearance: Good Eye Contact (improving ), Unkept, Psychomotor Retardation Speech: Spontaneous, Normal Rhythm (much improved today); No Normal Volume; Normal Tone, Delayed (significant latency of response, improved today) Mood: Dysthmic/Depressed (appears to have improving mood) Affect: Calm, Neutral Thought Process: Other (able to reply to closed ended questions but gets tangential easily copperative with care today. ) Thought Content: No Suicidal Ideation, No Homicidal Ideation; Delusions, Auditory Halllucinations (likely present, but appears to be lessening. ); No Thought Broadcasting, No Ideas of Reference, No Obsessions, No Compulsions, No Other Sensorium: Clear Cognition: Alert & Oriented-Person, Alert & Oriented-Place, Alert & Oriented- Time; No Irlmo-Qddvxlnp-Xnlxynafr (partially) Memory: Immediate, Recent, Remote Intelligence: Average Insight Judgment: Poor (remains limited currently) Result Diagram: 03/30/1961603/30/19616 [facility] Assessment and Plan Zdar-[id number] Encounter Date: Apr 01, 2019 Wikq-[id number] Encounter Time: 12:00 [facility] Plan: Necessary Precautions, Individual/Group Therapy, Admin/Titrate Meds, Educate Patient Tobacco Medications: Not Appropriate Condition Multpiple Antipsychotics Used: No Problems: (1) Anxiety disorder, unspecified Status: Chronic (2) Major depressive disorder Status: Chronic (3) Failure to thrive Status: Chronic Condition 1. start antibiotic. 2. continue other medications. 3. look into [facility] care placement. Problem Qualifiers (1) Anxiety disorder, unspecified: Anxiety disorder type: generalized anxiety disorder Qualified Codes: F41.1 - Generalized anxiety disorder (2) Major depressive disorder: Major depression recurrence: recurrent Psychotic features: with psychotic features (3) Failure to thrive: Failure to thrive age range: in adult Qualified Codes: R62.7 - Adult failure to thrive LILY PHILLIPS MD Apr 01, 2019 12:16
[2019-04-01] MEDS: AMPICILLIN 500 MG CAP PO SCH ×2 (14:01→20:39)
[2019-04-01] MEDS: IBUPROFEN 100 MG/5 ML UDCUP PO PRN (14:09)
[2019-04-01] MEDS: MIRTAZAPINE 15 MG TAB PO SCH (20:39)
[2019-04-01 21:17] VITALS: BP 101/55
[2019-04-02] MEDS: ACETAMINOPHEN 325 MG TAB PO PRN ×3 (02:43→21:31)
[2019-04-02] MEDS: LEVOTHYROXINE SOD 0.075 MG TAB PO SCH (06:24)
[2019-04-02 06:32] VITALS: BP 122/70
[2019-04-02] MEDS: IBUPROFEN 100 MG/5 ML UDCUP PO PRN (08:11)
[2019-04-02] MEDS: CHOLECALCIFEROL 1000 UNIT TAB PO SCH (08:13)
[2019-04-02] MEDS: THIAMINE HCL 100 MG TAB PO SCH (08:13)
[2019-04-02] MEDS: FOLIC ACID/CYANOCOB/PYRIDOXINE PO SCH (08:13)
[2019-04-02] MEDS: MULTIVITAMINS PO SCH (08:13)
[2019-04-02] MEDS: OLANZapine ZYDIS ODT 5MG TABDP PO SCH ×2 (08:13→21:31)
[2019-04-02] MEDS: AMPICILLIN 500 MG CAP PO SCH ×2 (08:13→21:35)
[2019-04-02] MEDS: DIVALPROEX SOD DR 500 MG TAB PO SCH ×2 (08:13→21:31)
--- NOTE | 2019-04-02 09:02 | Antimicrobial Stewardship ---
Antimicrobial Time Out Antimicrobial Stewardship MD Service: Hospitalist Indications: UTI Antimicrobial Used BACTRIM ON 03/22 X 3 DAYS, NOW AMPICILLIN 500MG PO BID Start Date: Apr 01, 2019 Culture Results: Yes (G+ COCCI - PENDING SENS) Eligible for PO Conversion Eligable for PO Conversion: Yes (ON PO) Reviewed with Provider Reviewed w/ Provider on Rounds: No Comments Comments Patient treated for UTI starting 03/22 with bactrim DS. Now recurrent UTI and started on Ampicillin 500mg PO BID. Cultures showed gram+ cocci, pending sensi tivities for directed therapy. KARLI RUSSO Apr 02, 2019 09:02
--- NOTE | 2019-04-02 10:32 | NUR ---
LT101 request made at request of Low SORIANO RN to assist in DC plans, has been working on SNF referrals and is foreseeing need for PASRR lvl 2 and need for LT101.
--- NOTE | 2019-04-02 10:35 | BHS Progress Note ---
[facility] - Subjective Progress Notes Subjective Patient continues to slowly gain strength, and seems to make slow gains in mentation as well. Today, when asked if he was having any hallucinations, or intrusive thoughts, patient responded "a little of that". potentially indicating he recognizes these symptoms for what they are. [facility] is evaluat ing today, for possible transfer. No medication changes today. Suicidal Ideation: None Homicidal Ideation: None [facility] - Objective Physical Exam Vital Signs Vital Signs Date Time Temp Pulse Resp B/P (MAP) Pulse Ox O2 Delivery O2 Flow Rate FiO2 04/02/19 06:32 99.0 50 122/70 (87) 95 Room Air 03/30/19 13:30 16 Muscle Strength and Tone: Other ( ambulating with walker today) Gait and Station: Unsteady (improving) [facility] Medications Reviewed: Side Effects, Benefits of Medication, Risks Allergies Reviewed: Yes Mental Status Exam General Appearance: Good Eye Contact (improving ), Unkept, Psychomotor Retardation Speech: Spontaneous, Normal Rhythm (much improved today); No Normal Volume; Normal Tone, Delayed (significant latency of response, improved today) Mood: Dysthmic/Depressed (appears to have improving mood) Affect: Calm, Neutral Thought Process: Organized (more so today) Thought Content: No Suicidal Ideation, No Homicidal Ideation; Delusions, Auditory Halllucinations (likely present, but appears to be lessening. ); No Thought Broadcasting, No Ideas of Reference, No Obsessions, No Compulsions, No Other Sensorium: Clear Cognition: Alert & Oriented-Person, Alert & Oriented-Place, Alert & Oriented- Time; No Nrrax-Ncfdcexz-Jfleearhw (partially) Memory: Immediate, Recent, Remote Intelligence: Average Insight Judgment: Poor (remains limited currently) Result Diagram: 03/30/1961603/30/19616 [facility] Assessment and Plan [id number] Encounter Date: Apr 02, 2019 [id number] Encounter Time: 10:00 [facility] Plan: Necessary Precautions, Individual/Group Therapy, Admin/Titrate Meds, Educate Patient Tobacco Medications: Not Appropriate Condition Multpiple Antipsychotics Used: No Problems: (1) Anxiety disorder, unspecified Status: Chronic (2) Major depressive disorder Status: Chronic (3) Failure to thrive Status: Chronic Condition 1. continue treatment. 2. no medication changes today. 3. await urine sensitivity 4. look into senior living care transfer, or ECF transfer. Problem Qualifiers (1) Anxiety disorder, unspecified: Anxiety disorder type: generalized anxiety disorder Qualified Codes: F41.1 - Generalized anxiety disorder (2) Major depressive disorder: Major depression recurrence: recurrent Psychotic features: with psychotic features (3) Failure to thrive: Failure to thrive age range: in adult Qualified Codes: R62.7 - Adult failure to thrive LILY PHILLIPS MD Apr 02, 2019 10:35
[2019-04-02 11:01] VITALS: BP 116/64
--- NOTE | 2019-04-02 11:56 | NUR ---
Occupational Therapy Impression SBA supine to sit. CGA ambulation x200ft with RW. Set-up donning glasses. Pt declined further needs at this time. Recommend placement as pt requires supervision for safety with functional tasks. Occupational Therapy Goals Patient's Goal
--- NOTE | 2019-04-02 15:21 | EKG ---
[place] [facility] [place] NAME: ISAC CORNELL : [id number] MR: [id number] V: [id number] EXAM DATE: ORDERING PHYSICIAN: LILY PHILLIPS TECHNOLOGIST: Test Reason : Blood Pressure : / mmHG Vent. Rate : 058 BPM Atrial Rate : 058 BPM P-R Int : 164 ms QRS Dur : 068 ms QT Int : 404 ms P-R-T Axes : 090 032 053 degrees QTc Int : 396 ms Sinus bradycardia Low voltage limb leads No acute appearing changes Confirmed by ELIZA TOBIAS ([id number] on 04/02/2019 3:41:04 PM Referred By: Confirmed By:ELIZA TOBIAS
[2019-04-02 21:05] VITALS: BP 115/64
[2019-04-02] MEDS: MIRTAZAPINE 15 MG TAB PO SCH (21:31)
[2019-04-03] MEDS: LEVOTHYROXINE SOD 0.075 MG TAB PO SCH (06:12)
[2019-04-03 06:19] VITALS: BP 110/63
[2019-04-03 08:32] VITALS: BP 122/65
[2019-04-03] MEDS: CHOLECALCIFEROL 1000 UNIT TAB PO SCH (08:36)
[2019-04-03] MEDS: FOLIC ACID/CYANOCOB/PYRIDOXINE PO SCH (08:36)
[2019-04-03] MEDS: THIAMINE HCL 100 MG TAB PO SCH (08:36)
[2019-04-03] MEDS: DIVALPROEX SOD DR 500 MG TAB PO SCH (08:37)
[2019-04-03] MEDS: OLANZapine ZYDIS ODT 5MG TABDP PO SCH (08:37)
[2019-04-03] MEDS: MULTIVITAMINS PO SCH (08:37)
[2019-04-03] MEDS: AMPICILLIN 500 MG CAP PO SCH (08:37)
[2019-04-03] MEDS ORDERED: TAMS0.4C25 PO (11:35)
[2019-04-03] MEDS ORDERED: DIVA500T98 PO (11:36)
[2019-04-03] MEDS ORDERED: B12/1TAB PO (11:37)
[2019-04-03] MEDS ORDERED: MIRT-1 PO (11:38)
[2019-04-03] MEDS ORDERED: AMPICILLIN PO (11:40)
[2019-04-03] MEDS ORDERED: MULT-1379 PO (11:40)
[2019-04-03] MEDS ORDERED: CHOL10005 PO (11:42)
[2019-04-03] MEDS ORDERED: OLAN5TAB25 PO (11:42)
[2019-04-03] MEDS ORDERED: IBUP400T13 PO (11:45)
[2019-04-03] MEDS ORDERED: ACET-1966 PO (11:46)
--- NOTE | 2019-04-03 12:22 | NUR ---
OCCUPATIONAL THERAPY Dressing Assistance: Jaime OLMEDO dressing Bathing Assistance: N/T with OT Home Assessment: Not Completed Feeding Assistance: Occasional increased assist to initiate feeding/drinking fluids Toilet Use: Maximum Assistance, 1-2 person assist Verbalizes Needs: Yes Understands Precautions: Yes Cooperative: Yes Family Teaching: No Occupational Therapy Comment:
--- NOTE | 2019-04-03 12:25 | NUR ---
PHYSICAL THERAPY INFORMATION TRANSFER SHEET BED MOBILITY: Standby Assistance TRANSFERS: CGA GAIT: 264 ' with RW and CGA Weightbearing Status: STAIRS: with . EXERCISES: Verbalizes Needs: Yes Understands Directions Yes Cooperative: Yes Family Teaching: No Physical Therapy Comment:
--- NOTE | 2019-04-04 16:50 | SCHAAF DISCHARGE ---
DATE OF ADMISSION: March 20, 2019 DATE OF DISCHARGE: April 03, 2019 ATTENDING PHYSICIAN Dima Valdovinos MD Patient was seen at approximately 0800 hours on 03 April 2019 for note concerning this dictation. FINAL DIAGNOSES 1. Major depression with psychotic features versus mood disorder secondary to general medical condition including urinary tract infection, failure to thrive mainly revolving around malnutrition. 2. Underlying generalized anxiety disorder, has likely been life-long. 3. Patient suffering from some social isolation as well. REASON FOR ADMISSION This is a 68-year-old male who gives a history suggestive of underlying long- standing anxiety disorder. Please see full H and P for full details. Patient had been living at home alone and then notably having a significant fracture of his right humerus in 2018. Patient's underlying anxiety disorder likely led the patient to perceive this injury as more catastrophic than it was. Patient was being followed by [facility] after this time. Patient noted to be losing a lot of weight, becoming more anxious, rarely going outside, and becoming more isolated. Patient's condition continued to deteriorate to the point that patient was starting to hallucinate and becoming very depressed and in a malnourished state. Patient brought to the Behavioral Health Unit for treatment. Patient admitted without incident. Appetite quickly improved. Degree of depression and psychosis remained, but responded in the end to low- dose Zyprexa, Depakote, and Remeron. Patient worked with OT and PT on the floor to regain strength as well until overall condition was appropriate for transport to long-term care facility in [place] to pursue longer term rehab with eventual goal of returning patient to the community. At time of discharge, patient was noted to be recovering from UTI as patient had recently the need for catheterization, and this would be followed further by Urology as well. PHYSICAL EXAMINATION Please see emergency room note. GENERAL: A thin, 68-year-old male experiencing significant depression with psychotic features upon admission. VITAL SIGNS: Upon arrival, temperature 98.9, pulse 91, respiratory rate 12, blood pressure 136/94, and pulse oximetry 93% on room air. Vital signs at time of discharge: Temperature 99.0, pulse 64, respiratory rate 16, blood pressure 122/65, and pulse oximetry 99% on room air. LABORATORY DATA Most recent on 03/30/2019. CBC notable for white blood cells slightly low. RBCs, hematocrit, and hemoglobin also slightly low as well. MCV and MCH remained elevated at 97.9 and 33.9 respectively. Chemistry panel on 03/30/2019 notable for AST and ALT of 51 and 88, both elevated, but falling. Urinalysis showed small leukocyte esterase on 03/31/2019, with a microbiology report final with Enterococcus faecalis, sensitive to ampicillin, which patient is prescribed. Valproic acid level on 03/30/2019 was 58.4. Stool occult blood was negative. MENTAL STATUS EXAMINATION AT TIME OF DISCHARGE GENERAL APPEARANCE, BEHAVIOR, AND ATTITUDE: Somewhat slowed 68-year-old male, recovering from significant malnutrition. Some psychomotor retardation evident. Patient able to make fair eye contact at times. No periods of tearfulness. SPEECH: Slowed and soft at times. MOOD: Described as down. AFFECT: Minimally constricted and mood congruent. THOUGHT PROCESSES: Patient to indicate an understanding of need for long-term care for rehab. No loose associations or flight of ideas were detected. THOUGHT CONTENT: Free of auditory or visual hallucinations. According to the patient, these seem to be resolving. No ideas of reference, thought broadcastings, delusions, obsessions, compulsions. Patient adamantly denying suicidal or homicidal ideation. SENSORIUM: Clear. COGNITION: Alert and oriented to person, place, time, and mostly to situation. MEMORY: Immediate, recent, and remote considered grossly intact. INTELLIGENCE: Average based on interview and historical data. INSIGHT AND JUDGMENT: Considered appropriate for entrance into long-term care for rehab. RESULTS OF TESTING Imaging: Please see electronic record. Largely unremarkable abdomen and pelvis CT, lumbar spine CT, and head CT done on 03/20/2019 and 03/21/2019, but please refer to imaging on electronic data. Laboratory data: See above. CONSULTATIONS None. TREATMENT Patient received medications, did participate some in individual and group therapy. HOSPITAL COURSE Patient was very weak and in a state of psychotic depression upon admission. This continued to slowly improve, and symptoms were deemed stable enough to resume and continue treatment at long-term care facility. CONDITION OF PATIENT ON DISCHARGE Stable for transport to long-term care for continued rehab and considered minimal risk to himself or others. DISPOSITION Patient discharged to the care of [facility] in [place]. The patient would follow up with Urology for urinary retention there. Catheter to be removed in four days. Patient would have a Depakote level, CBC, CMP, and a repeat UA in one week. Patient without remain on treatment for gram-positive cocci in the urine culture. Crisis line was given should symptoms return. Copy of lab work, recent imaging, and urology consult would accompany patient on transfer. DISCHARGE MEDICATIONS 1. Flomax, which would be held while catheter is in place, 0.4 mg daily. 2. Depakote 500 mg twice daily. 3. Foltx one daily. 4. Ampicillin 500 mg b.i.d. for the next four days. 5. Remeron 15 mg at bedtime. 6. Synthroid 75 mcg in the morning. 7. Multivitamin with minerals daily. 8. Vitamin B1 100 mg daily. 9. Vitamin D3 4000 units daily. 10. Patient would continue 2.5 mg twice daily of Zyprexa. 11. Patient could use Motrin every six hours p.r.n. as well. Risks, benefits, and alternatives of the above discharge plan were discussed. Informed consent was given to proceed with the above discharge plan by this patient and accepting facility, [facility] in [place]. NICOLE
== END 2019-04-03 17:46 | DRG 885 ==
LOC: BHS 14:26
PROVIDERS: ADMIT Psychiatry & Neurology Psychiatry; ATTEND Psychiatry & Neurology Psychiatry
PROC: 0T9B70Z Drainage of Bladder with Drainage Device, Via Natural or Artificial Opening (ICD-10-PCS; principal; 2019-03-21)
DX: F32.3 Major depressive disorder, single episode, severe with psychotic features (principal); E41 Nutritional marasmus; N39.0 Urinary tract infection, site not specified; Z68.1 Body mass index [BMI] 19.9 or less, adult; F41.1 Generalized anxiety disorder; Z60.4 Social exclusion and rejection; R62.7 Adult failure to thrive; B95.2 Enterococcus as the cause of diseases classified elsewhere; I45.81 Long QT syndrome; R33.9 Retention of urine, unspecified; K21.9 Gastro-esophageal reflux disease without esophagitis; E03.9 Hypothyroidism, unspecified; Z88.1 Allergy status to other antibiotic agents; Z90.49 Acquired absence of other specified parts of digestive tract
CPT/HCPCS: 36415; 36416; 70450; 72131; 74177; 80164; 80305; 80320; 81001; 82040; 82140; 82247; 82274; 82310; 82374; 82375; 82435; 82565; 82607; 82746; 82803; 82947; 82948; 83735; 84075; 84132; 84153; 84155; 84295; 84443; 84450; 84460; 84484; 84520; 85025; 85027; 85651; 86140; 87077; 87088; 87186; 93005; 96361; 96374; 97161; 97166; 99284; J2060; J7030; Q9967

== ENCOUNTER → 2019-03-20 | Emergency (ER) | payer MEDICARE ==
[2018-04-13 13:34] VITALS: BMI 25.0
[~2019-03-20] MED LIST changes: +CEPH500T7 PO; +CITA-145 PO; +IOPAMIDOL 76% 100 ML INFUS BTL 100 ML ONE; +LORazepam 2 MG/ML VIAL IVP ONE; +NS(*) 0.9% 1000 ML BAG 1,000 ML IV ONE; +OXYC5TAB38 PO
--- NOTE | 2019-03-20 12:40 | ER Report ---
History and Physical Time Seen By MD: 12:37 HPI/ROS CHIEF COMPLAINT: Failure to thrive, anxiety HISTORY OF PRESENT ILLNESS: Patient is a 68-year-old male with a history of avoidant personality disorder sent in by the patient's therapist who reportedly works with the patient at home. Patient reports having a fall approximately one year ago and has not left his apartment since that time. Therapist reports that the patient on average eats 4 meals per week, has extreme difficulty taking care of himself at home where he lives alone. Patient has severe anxiety and reportedly becomes very anxious about leaving his house. Patient was brought in today because he admitted to new-onset of hearing voices, reportedly persucatory in nature. Patient refuses to answer whether or not he was having suicidal ideations today though he did admit to the voices are threatening him. Patient's therapist reports that she is very concerned because he has had intermittent suicidal ideations in the recent past. Patient is treated with citalopram, clonazepam, levothyroxine. Denies recent history of trauma, infections. REVIEW OF SYSTEMS: Constitutional: No fever, no chills. Eyes: No discharge. ENT: No sore throat. Cardiovascular: No chest pain, no palpitations. Respiratory: No cough, no shortness of breath. Gastrointestinal: No abdominal pain, no vomiting. Genitourinary: No hematuria. Musculoskeletal: No back pain. Skin: No rashes. Neurological: No headache. Psych: Anxious, hearing voices, equivocal regarding suicidal or homicidal ideations Allergies: Coded Allergies: clindamycin (Verified Adverse Reaction, Unknown, 03/20/19) AVOIDS, NEVER HAD CLINDAMYCIN Uncoded Allergies: JANI HIPS (Allergy, Intermediate, LIP SWELLING, 03/01/12) Home Meds Reported Medications Citalopram Hydrobromide (CITALOPRAM HBR) 20 Mg Tablet, 20 MG PO QDAY, #5 TAB 03/20/19 Levothyroxine Sodium (Levothyroxine Sodium) 50 Mcg Tablet, 75 MCG PO DAILY, 0 Refills 09/16/11 Clonazepam (Klonopin) 1 Mg Tab, 0.5 MG PO BID, 0 Refills 09/16/11 Discontinued Reported Medications Cephalexin 500 Mg Tab (KEFLEX 500 MG TAB) 500 Mg Tablet, 500 MG PO Q6H, #12 TAB 04/13/18 Oxycodone Hcl (OXYCODONE HCL) 5 Mg Tablet, 5 MG PO Q4H PRN for PAIN, #20 04/13/18 Hx Smoking: No Hx Substance Use Disorder: No Hx Alcohol Use: No Constitutional Vital Sign - Last 24 Hours 03/20/19 03/20/19 03/20/19 03/20/19 12:20 12:25 12:30 12:35 Pulse 91 93 90 89 Resp 21 11 17 B/P (MAP) 136/94 (108) Pulse Ox 93 93 94 92 03/20/19 03/20/19 03/20/19 03/20/19 12:36 12:40 12:45 12:50 Temp 98.9 Pulse 91 92 90 91 Resp 12 15 20 14 B/P (MAP) 136/94 Pulse Ox 93 93 92 93 O2 Delivery Room Air 03/20/19 03/20/19 03/20/19 13:00 13:25 13:30 Pulse 84 Resp 19 B/P (MAP) 143/88 (106) 134/82 (99) Pulse Ox 94 Physical Exam General Appearance: The patient is alert, has no immediate need for airway protection and no signs of toxicity. Anxious appearing Eyes: Pupils equal and round no pallor or injection. ENT, Mouth: Mucous membranes are moist. Respiratory: There are no retractions, lungs are clear to auscultation. Cardiovascular: Regular rate and rhythm. Gastrointestinal: Abdomen is soft and non tender, no masses, bowel sounds normal. Neurological: No focal neurological deficits Skin: Warm and dry, no rashes. Musculoskeletal: Neck is supple non tender. Extremities are nontender, nonswollen and have full range of motion. Psych: Anxious appearing, blunted affect, equivocal regarding suicidal or homicidal ideations, admits to auditory hallucinations DIFFERENTIAL DIAGNOSIS: After history and physical exam differential diagnosis was considered for intracranial pathology, electrolyte abnormality, anxiety, avoidant personality disorder, auditory hallucinations, intoxication Medical Decision Making Data Points Result Diagram: 03/20/19 1232 03/20/19 1232 Laboratory Hematology Test 03/20/19 12:32 White Blood Count 5.2 k/uL (4.5-11.0) Red Blood Count 4.89 M/uL (4.00-5.60) Hemoglobin 16.2 g/dL (14.0-18.0) Hematocrit 47.3 % (42.0-52.0) Mean Corpuscular Volume 96.7 fL (80.0-96.0) H Mean Corpuscular Hemoglobin 33.0 pg (26.0-33.0) Mean Corpuscular Hemoglobin Concent 34.2 g/dL (32.0-36.0) Red Cell Distribution Width 14.2 % (11.5-14.5) Platelet Count 212 K/uL (150-450) Mean Platelet Volume 8.1 fL (7.2-11.1) Neutrophils (%) (Auto) 76.5 % (39.4-72.5) H Lymphocytes (%) (Auto) 12.4 % (17.6-49.6) L Monocytes (%) (Auto) 10.7 % (4.1-12.4) Eosinophils (%) (Auto) 0.1 % (0.4-6.7) L Basophils (%) (Auto) 0.3 % (0.3-1.4) Nucleated RBC Relative Count (auto) 0.2 /100WBC Neutrophils # (Auto) 3.9 K/uL (2.0-7.4) Lymphocytes # (Auto) 0.6 K/uL (1.3-3.6) L Monocytes # (Auto) 0.6 K/uL (0.3-1.0) Eosinophils # (Auto) 0.0 K/uL (0.0-0.5) Basophils # (Auto) 0.0 K/uL (0.0-0.1) Nucleated RBC Absolute Count (auto) 0.01 K/uL Chemistry Test 03/20/19 12:32 03/20/19 12:36 Sodium Level 140 mmol/L (137-145) Potassium Level 3.6 mmol/L (3.5-5.0) Chloride Level 106 mmol/L (98-107) Carbon Dioxide Level 23 mmol/L (22-30) Blood Urea Nitrogen 18 mg/dl (9-21) Creatinine 0.70 mg/dl (0.66-1.25) Glomerular Filtration Rate Calc > 60.0 Random Glucose 111 mg/dl (75-110) Calcium Level 10.2 mg/dl (8.4-10.2) Total Bilirubin 1.1 mg/dl (0.2-1.3) Aspartate Amino Transf (AST/SGOT) 38 U/L (0-35) Alanine Aminotransferase (ALT/SGPT) 44 U/L (0-56) Alkaline Phosphatase 87 U/L (0-126) Ammonia < 9 UMOL/L (9-33) Troponin I < 0.012 ng/ml Total Protein 7.8 g/dl (6.3-8.2) Albumin 4.7 g/dl (3.5-5.0) Thyroid Stimulating Hormone (TSH) 1.03 uIU/ml (0.46-4.68) Whole Blood Glucose 108 mg/DL (75-110) Toxicology Test 03/20/19 12:32 03/20/19 12:46 Serum Alcohol < 10 mg/dl Urine Opiates Screen Negative Urine Barbiturates Screen Negative Ur Tricyclic Antidepressants Screen Negative Urine Phencyclidine Screen Negative Urine Amphetamines Screen Negative Urine Benzodiazepines Screen Negative Urine Cocaine Screen Negative Urine Cannabinoids Screen Negative Urinalysis Test 03/20/19 12:46 Urine Color Yellow Urine Clarity Clear Urine pH 6.0 pH (4.8-9.5) Urine Specific [place] 1.025 Urine Protein Negative mg/dL (NEGATIVE) Urine Glucose (UA) Negative mg/dL (NEGATIVE) Urine Ketones 80 mg/dL (NEGATIVE) Urine Blood Negative (NEGATIVE) Urine Nitrite Negative (NEGATIVE) Urine Bilirubin Negative (NEGATIVE) Urine Urobilinogen Negative mg/dL (0.2-1.9) Urine Leukocyte Esterase Trace (NEGATIVE) Urine RBC 1 /HPF (0-2/HPF) Urine WBC 3 /HPF (0-5/HPF) Urine Squamous Epithelial Cells Few /LPF (</=FEW) Urine Calcium Oxalate Crystals Few /HPF (NONE) Urine Bacteria Negative /HPF (NONE-FEW) Urine Mucus None /HPF (NONE-FEW) EKG/Imaging EKG Interpretation 12 lead EKG: Normal sinus rhythm, ventricular rate 89, QTC 355. No ischemic changes Rhythm: normal sinus rhythm [place]: normal QRS: normal ST segments: normal Imaging Please see official radiology report ED Course/Re-evaluation ED Course Patient is a 68-year-old male here with complaints of auditory hallucinations, anxiety, failure to thrive. Patient reportedly has not been taking care of himself at home, consuming on average 4 meals per week. Today he reports auditory hallucinations which are persucatory and patient would not answer whether or not he had suicidal or homicidal ideations though he does have a history of suicidal ideations in the past. Patient's therapist accompanied him to the emergency department due to concern for safety at home. Patient is anxious appearing. CT imaging of the head showed no acute intracranial pathology. EKG was unremarkable, labs were unremarkable as well. Patient reportedly has been taking citalopram, clonazepam for outpatient treatment. Tox screen negative including alcohol. I discussed the patient with Dr. Valdovinos who accepted the patient to behavioral services for further treatment and care. Patient was stable at time of admission. Patient was voluntary for admission. Decision to Disposition Date: Mar 20, 2019 Decision to Disposition Time: 14:06 Depart Departure Latest Vital Signs Vital Signs Date Time Temp Pulse Resp B/P (MAP) Pulse Ox O2 Delivery O2 Flow Rate FiO2 03/20/19 13:30 134/82 (99) 03/20/19 13:25 84 19 94 03/20/19 12:36 98.9 Room Air Impression: Primary Impression: Anxiety disorder, unspecified Additional Impressions: Failure to thrive Auditory hallucinations Condition: Condition Unchanged Disposition: [facility] Referrals: AKSHAT SCOTT (PCP) Problem Qualifiers DEEPIKA MCGUIRE DO Mar 20, 2019 12:40
[2019-03-20 12:44] LABS: PLATELET COUNT, AUTOMATED 212 K/uL (150-450)
--- NOTE | 2019-03-20 12:47 | EKG ---
[place] [facility] [place] ISAC CORNELL : [id number] MR: [id number] V: [id number] EXAM DATE: ORDERING PHYSICIAN: DEEPIKA MCGUIRE TECHNOLOGIST: MARISEL Serrano Reason : WEAKNESS Blood Pressure : / mmHG Vent. Rate : 089 BPM Atrial Rate : 089 BPM P-R Int : 144 ms QRS Dur : 080 ms QT Int : 292 ms P-R-T Axes : 075 066 044 degrees QTc Int : 355 ms Normal sinus rhythm Nonspecific ST and T wave abnormality Abnormal ECG No previous ECGs available Confirmed by Gold Lomeli ([id number]) on 03/20/2019 4:11:44 PM Referred By: Confirmed By:Gold Foreman
--- NOTE | 2019-03-20 13:52 | RADIOLOGY IMAGING REPORT ---
FACILITY: [facility] [place] PATIENT NAME: Herrera Bowles : 1950 MR: [id number] V: [id number] EXAM DATE: ORDERING PHYSICIAN: DEEPIKA MCGUIRE TECHNOLOGIST: Location: [facility] [place] Patient: Herrera Bowles : 1950 Visit/Account:[id number] Date of Sevice: 03/20/2019 CT Head without contrast Indication: Altered mental status. Comparison: None available Technique: Axial CT images were obtained through the brain from the skull base to the vertex without administration of IV contrast. Reformatted coronal and sagittal images were also obtained. One of the following dose optimization techniques was utilized in the performance of this exam: autom ated exposure control; adjustment of the mA and/or kV according to the patient's size; or use of an i terative reconstruction technique. Specific details can be referenced in the facility's radiology CT exam operational policy. Findings: No evidence of mass, mass effect, or midline shift. No acute intracranial hemorrhage or acute territorial infarction. No extra-axial fluid collection or hydrocephalus. Mild age-related cerebral atrophy. Minimal perivent ricular white matter ischemic changes. The harvey/white matter differentiation appears normal. Bony structures show no fractures or lesions. The visualized paranasal sinuses and mastoid air cells are clear. IMPRESSION: 1. Mild senescent changes without acute abnormality. Report Dictated By: Jaylan Pavon at 03/20/2019 1:39 PM Report E-Signed By: Jaylan Pavon at 03/20/2019 1:45 PM WSN:[id number]
[2019-03-20 14:30] VITALS: BP 130/82
--- NOTE | 2019-03-21 02:14 | RADIOLOGY IMAGING REPORT ---
[place] [facility] [place] NAME: Herrera Bowles : 1950 MR: [id number] V: [id number] EXAM DATE: ORDERING PHYSICIAN: TINY MCDANIEL TECHNOLOGIST: Location: [facility] Patient: Herrera Bowles : 1950 Visit/Account:[id number] Date of Sevice: 03/21/2019 CT ABDOMEN PELVIS W/ CON, CT VERTEBRA LUMBAR (NON CON) HISTORY: Urinary retention. COMPARISON: CT of the abdomen 01/23/2011 and 07/19/2010 CT of the abdomen and pelvis. No previous imag ing of the lumbar spine. TECHNIQUE: Axial images were obtained from the lung bases through the symphysis pubis with intravenou s contrast. Sagittal and coronal reformats were performed. Delayed images were performed through lowe r abdomen and the pelvis. Imaging of the lumbar spine was reconstructed from the source data using a bone algorithm, and sagitt al and coronal reformats were performed. One of the following dose optimization techniques was utilized in the performance of this exam: Autom ated exposure control; adjustment of the mA and/or kV according to the patient's size; or use of an i terative reconstruction technique. Specific details can be referenced in the facility's radiology CT exam operational policy. CONTRAST: 75 mL IV Isovue-370. FINDINGS: There is respiratory motion artifact. LOWER CHEST: There is coronary artery calcification. LIVER: Liver is diffusely decreased in attenuation. GALLBLADDER/BILIARY: Cholecystectomy. No intrahepatic or extrahepatic ductal dilation. PANCREAS: Normal. SPLEEN: Normal. ADRENALS: Normal. KIDNEYS/URETERS/BLADDER: Normal kidneys and ureters. There is a Lyon catheter within bladder, and th ere is a small to moderate amount of gas within the bladder, likely from Lyon placement. There is hi gh density material in the dependent bladder, compatible with calculi/calcification that has increase d since the CT from 2009. No bladder wall thickening. Delayed images demonstrate contrast within the visible ureters and bladder. No filling defect. GI/MESENTERY/PERITONEAL CAVITY: There is no bowel obstruction. There is no wall thickening or pericol onic stranding. There is a tubular structure that appears to be the normal appendix arising from the superior cecum. No diverticula. No free air or free fluid. VESSELS: There is mild atherosclerotic disease. The iliac arteries each measure 1.3 cm in cross-secti on, unchanged. No dissection. There is mild atherosclerosis at the origin of the superior mesenteric artery. No stenosis. NODES: Normal. PELVIS: There are coarse prostate calcifications. Prostate is enlarged, measuring 5.9 cm. BONES/VERTEBRA/SOFT TISSUES: S1 is a transitional vertebra. Vertebral body heights are maintained. No listhesis. There is straightening of the normal lumbar lordosis. There is a slight rightward curvatu re of the lumbar spine. No spinal canal stenosis. There are mild bilateral foraminal stenoses at L5-S 1. Spine is stable. IMPRESSION: 1. Posterior calcification/calculi within the bladder has increased compared to CT from 2009. No blad jaylin wall thickening. No hydronephrosis or obstructing calculus. There is a Lyon catheter within the bladder. 2. Prostate is enlarged. 3. Stable mild degenerative changes of the spine. 4. Coronary artery calcification. Report Dictated By: Liliana Cummins at 03/21/2019 1:44 AM Report E-Signed By: Liliana Cummins at 03/21/2019 2:06 AM WSN:[id number]
--- NOTE | 2019-03-21 02:14 | RADIOLOGY IMAGING REPORT ---
[place] [facility] [place]: Herrera Bowles : 1950 MR: [id number] V: [id number] EXAM DATE: ORDERING PHYSICIAN: TINY MCDANIEL TECHNOLOGIST: Location: [facility] - [place] Patient: Herrera Bowles : 1950 Visit/Account:[id number] Date of Sevice: 03/21/2019 CT ABDOMEN PELVIS W/ CON, CT VERTEBRA LUMBAR (NON CON) HISTORY: Urinary retention. COMPARISON: CT of the abdomen 01/23/2011 and 07/19/2010 CT of the abdomen and pelvis. No previous imag ing of the lumbar spine. TECHNIQUE: Axial images were obtained from the lung bases through the symphysis pubis with intravenou s contrast. Sagittal and coronal reformats were performed. Delayed images were performed through lowe r abdomen and the pelvis. Imaging of the lumbar spine was reconstructed from the source data using a bone algorithm, and sagitt al and coronal reformats were performed. One of the following dose optimization techniques was utilized in the performance of this exam: Autom ated exposure control; adjustment of the mA and/or kV according to the patient's size; or use of an i terative reconstruction technique. Specific details can be referenced in the facility's radiology CT exam operational policy. CONTRAST: 75 mL IV Isovue-370. FINDINGS: There is respiratory motion artifact. LOWER CHEST: There is coronary artery calcification. LIVER: Liver is diffusely decreased in attenuation. GALLBLADDER/BILIARY: Cholecystectomy. No intrahepatic or extrahepatic ductal dilation. PANCREAS: Normal. SPLEEN: Normal. ADRENALS: Normal. KIDNEYS/URETERS/BLADDER: Normal kidneys and ureters. There is a Lyon catheter within bladder, and th ere is a small to moderate amount of gas within the bladder, likely from Lyon placement. There is hi gh density material in the dependent bladder, compatible with calculi/calcification that has increase d since the CT from 2009. No bladder wall thickening. Delayed images demonstrate contrast within the visible ureters and bladder. No filling defect. GI/MESENTERY/PERITONEAL CAVITY: There is no bowel obstruction. There is no wall thickening or pericol onic stranding. There is a tubular structure that appears to be the normal appendix arising from the superior cecum. No diverticula. No free air or free fluid. VESSELS: There is mild atherosclerotic disease. The iliac arteries each measure 1.3 cm in cross-secti on, unchanged. No dissection. There is mild atherosclerosis at the origin of the superior mesenteric artery. No stenosis. NODES: Normal. PELVIS: There are coarse prostate calcifications. Prostate is enlarged, measuring 5.9 cm. BONES/VERTEBRA/SOFT TISSUES: S1 is a transitional vertebra. Vertebral body heights are maintained. No listhesis. There is straightening of the normal lumbar lordosis. There is a slight rightward curvatu re of the lumbar spine. No spinal canal stenosis. There are mild bilateral foraminal stenoses at L5-S 1. Spine is stable. IMPRESSION: 1. Posterior calcification/calculi within the bladder has increased compared to CT from 2009. No blad jaylin wall thickening. No hydronephrosis or obstructing calculus. There is a Lyon catheter within the bladder. 2. Prostate is enlarged. 3. Stable mild degenerative changes of the spine. 4. Coronary artery calcification. Report Dictated By: Liliana Cummins at 03/21/2019 1:44 AM Report E-Signed By: Liliana Cummins at 03/21/2019 2:06 AM WSN:[id number]
== END ==
LOC: ER 12:31
DX: F41.9 Anxiety disorder, unspecified (principal); R62.7 Adult failure to thrive; R44.0 Auditory hallucinations; R53.1 Weakness
CPT/HCPCS: 36416; 70450; 80305; 81001; 82140; 82375; 82803; 82948; 84443; 84484; 85025; 87088; 93005; 96361; 96374; 99284; G0480; J2060; J7030; 72131; 74177; 80320; 82040; 82247; 82310; 82374; 82435; 82565; 82947; 84075; 84132; 84155; 84295; 84450; 84460; 84520; Q9967

== ENCOUNTER → 2019-03-20 | Outpatient (CLI) | payer MEDICARE ==
[2018-04-13 13:34] VITALS: BMI 25.0
[~2019-03-20] MED LIST changes: -IOPAMIDOL 76% 100 ML INFUS BTL 100 ML ONE; -LORazepam 2 MG/ML VIAL IVP ONE; -NS(*) 0.9% 1000 ML BAG 1,000 ML IV ONE
== END ==
LOC: AMB 11:54
PROVIDERS: ATTEND Nurse Practitioner
DX: R31.9 Hematuria, unspecified (principal)
CPT/HCPCS: A0425; A0429